=== PATIENT | male | born 1980 | race Caucasian/White ===

== ENCOUNTER 2018-04-12 00:35 | Day surgery (SDC) | payer OTHER ==
[~2018-04-12 00:35] MED LIST: AMOX500 PO; IBUP800 PO; OXYC15ER PO; PENVK500 PO
[2018-04-12] MEDS ORDERED: ASPI81CH PO (08:46)
[2018-04-12] MEDS ORDERED: LEVE500 PO (08:47)
[2018-04-12] MEDS ORDERED: ATOR20 PO (08:47)
[2018-04-12] MEDS ORDERED: METO25 PO (08:48)
[2018-04-12] MEDS ORDERED: OXYC5 PO (08:49)
[2018-04-12] MEDS ORDERED: Ceftriaxone2 G2 IV (08:49)
== END 2018-04-12 09:13 | disposition home or self-care (01) ==
LOC: ATC 00:35
DX: I33.0 Acute and subacute infective endocarditis (principal); B95.4 Other streptococcus as the cause of diseases classified elsewhere
CPT/HCPCS: 96365; J0696

== ENCOUNTER 2018-04-13 00:31 | Day surgery (SDC) | payer OTHER ==
[~2018-04-13 00:31] MED LIST changes: +ASPI81CH PO; +ATOR20 PO; +Ceftriaxone2 G2 IV; +LEVE500 PO; +METO25 PO; +OXYC5 PO
== END 2018-04-13 09:20 | disposition home or self-care (01) ==
LOC: ATC 00:31
DX: I35.8 Other nonrheumatic aortic valve disorders (principal); R78.81 Bacteremia; B95.4 Other streptococcus as the cause of diseases classified elsewhere
CPT/HCPCS: 96365; J0696

== ENCOUNTER 2018-04-14 02:00 | Day surgery (SDC) | payer OTHER | END 2018-04-14 09:21 | disposition home or self-care (01) | LOC: ATC 02:00 | DX: I33.0 Acute and subacute infective endocarditis (principal); B95.5 Unspecified streptococcus as the cause of diseases classified elsewhere; R78.81 Bacteremia | CPT/HCPCS: 96365; J0696 ==

== ENCOUNTER 2018-04-15 00:20 | Day surgery (SDC) | payer OTHER | END 2018-04-15 09:49 | disposition home or self-care (01) | LOC: ATC 00:20 | DX: I33.0 Acute and subacute infective endocarditis (principal); B95.4 Other streptococcus as the cause of diseases classified elsewhere; R78.81 Bacteremia | CPT/HCPCS: 96365; J0696 ==

== ENCOUNTER 2018-04-16 07:47 | Day surgery (SDC) | payer OTHER | END 2018-04-16 10:26 | disposition home or self-care (01) | LOC: ATC 07:47 | DX: I33.0 Acute and subacute infective endocarditis (principal); B95.5 Unspecified streptococcus as the cause of diseases classified elsewhere | CPT/HCPCS: 96365; J0696 ==

== ENCOUNTER 2018-04-17 02:00 | Day surgery (SDC) | payer OTHER | END 2018-04-17 09:18 | disposition home or self-care (01) | LOC: ATC 02:00 | DX: I38 Endocarditis, valve unspecified (principal) | CPT/HCPCS: 96365; J0696 ==

== ENCOUNTER 2018-04-18 00:10 | Day surgery (SDC) | payer OTHER | END 2018-04-18 09:25 | disposition home or self-care (01) | LOC: ATC 00:10 | DX: I33.0 Acute and subacute infective endocarditis (principal); B95.5 Unspecified streptococcus as the cause of diseases classified elsewhere | CPT/HCPCS: 96365; J0696 ==

== ENCOUNTER 2018-04-19 00:21 | Day surgery (SDC) | payer OTHER ==
[2018-04-19 10:28] LABS: BASOPHILS ABSOLUTE AUTO 0.05 K/mm3 (0.00-0.23); BASOPHILS PERCENT AUTO 1 % (0-2); EOSINOPHILS PERCENT AUTO 2 % (0-6); Hematocrit 32.6 % (37.0-53.0); Hemoglobin 10.4 g/dL (13.5-17.5); IMMATURE GRAN ABSOLUTE AUTO 0.03 K/mm3 (0.00-0.10); IMMATURE GRAN PERCENT AUTO 0 % (0-1); LYMPHOCYTES ABSOLUTE AUTO 2.81 K/mm3 (0.84-5.20); LYMPHOCYTES PERCENT AUTO 32 % (21-46); MONOCYTES ABSOLUTE AUTO 0.51 K/mm3 (0.16-1.47); MONOCYTES PERCENT AUTO 6 % (4-13); Mean Corpuscular HGB 29.7 pg (26.0-34.0); Mean Corpuscular HGB Conc 31.9 g/dL (31.5-36.5); Mean Corpuscular Volume 93 fL (80-100); NEUTROPHILS ABSOLUTE AUTO 5.26 K/mm3 (1.96-9.15); NEUTROPHILS PERCENT AUTO 59 % (41-73); Platelet Count 404 K/mm3 (150-400); RDW Coefficient Variation 14.6 % (11.7-14.2); RDW Standard Deviation 49.6 fL (35.1-46.3); White Blood Cell Count 8.86 K/mm3 (4.00-11.30)
[2018-04-19 10:49] LABS: Alanine Aminotransfer (ALT/SGP 29 U/L (12-78); Albumin, Blood 3.6 g/dL (3.4-5.0); Albumin/Globulin Ratio 0.8 (0.8-1.8); Alk Phos 82 U/L (50-136); Anion Gap 7 mmol/L (6-16); Aspartate Aminotrans (AST/SGOT 18 U/L (12-37); Bilirubin, Total 0.4 mg/dL (0.1-1.0); Blood Urea Nitrogen 9 mg/dL (8-24); Bun/Creatinine Ratio 11.7 (12.0-20.0); CO2, Blood 27 mmol/L (21-32); Calcium, Blood 8.8 mg/dL (8.5-10.1); Chloride, Blood 106 mmol/L (98-108); Creatinine, Blood 0.77 mg/dL (0.60-1.20); Globulin, Blood 4.4 g/dL (2.2-4.0); Glomerular Filtration Rate >60 (60-); Glucose, Blood 129 mg/dL (70-99); Potassium, Blood 4.2 mmol/L (3.5-5.5); Sodium, Blood 140 mmol/L (136-145)
== END 2018-04-19 10:26 | disposition home or self-care (01) ==
LOC: ATC 00:21
PROVIDERS: Internal Medicine
DX: S06.340A Traumatic hemorrhage of right cerebrum without loss of consciousness, initial encounter (principal); I35.8 Other nonrheumatic aortic valve disorders; Z95.2 Presence of prosthetic heart valve
CPT/HCPCS: 80053; 85025; 86140; 96365; J0696

== ENCOUNTER 2018-04-21 08:40 | Day surgery (SDC) | payer OTHER | END 2018-04-21 09:15 | disposition home or self-care (01) | LOC: ATC 08:40 | DX: I33.0 Acute and subacute infective endocarditis (principal); B95.4 Other streptococcus as the cause of diseases classified elsewhere | CPT/HCPCS: 96365; J0696 ==

== ENCOUNTER 2018-12-03 14:23 | Inpatient (IN) | payer OTHER ==
[~2018-12-03] VITALS: Ht 175.3 cm; Wt 73.1 kg
[2018-12-03 15:06] LABS: Source, Urine Catheter
[2018-12-03 15:06] LABS: BASOPHILS ABSOLUTE AUTO 0.03 K/mm3 (0.00-0.23); BASOPHILS PERCENT AUTO 0 % (0-2); Hemoglobin 13.7 g/dL (13.5-17.5); LYMPHOCYTES ABSOLUTE AUTO 0.53 K/mm3 (0.84-5.20); LYMPHOCYTES PERCENT AUTO 3 % (21-46); MONOCYTES ABSOLUTE AUTO 0.47 K/mm3 (0.16-1.47); MONOCYTES PERCENT AUTO 3 % (4-13); Mean Corpuscular HGB Conc 33.4 g/dL (31.5-36.5); Mean Corpuscular Volume 90 fL (80-100); Platelet Count 70 K/mm3 (150-400); RDW Coefficient Variation 12.6 % (11.7-14.2); RDW Standard Deviation 41.5 fL (35.1-46.3); Red Blood Cell Count 4.56 M/mm3 (4.30-5.90); White Blood Cell Count 15.91 K/mm3 (4.00-11.30)
[2018-12-03 15:12] LABS: PCO2 Arterial 28.8 mmHg (35-45); PO2 Arterial 85.5 mmHg (80-100); pH Blood Arterial 7.54 (7.35-7.45)
[2018-12-03 15:15] LABS: EOSINOPHILS PERCENT AUTO 0 % (0-6); IMMATURE GRAN ABSOLUTE AUTO 0.19 K/mm3 (0.00-0.10); IMMATURE GRAN PERCENT AUTO 1 % (0-1); NEUTROPHILS ABSOLUTE AUTO 14.69 K/mm3 (1.96-9.15); NEUTROPHILS PERCENT AUTO 92 % (41-73)
[2018-12-03 15:21] LABS: Alanine Aminotransfer (ALT/SGP 82 U/L (12-78); Albumin, Blood 3.3 g/dL (3.4-5.0); Albumin/Globulin Ratio 0.8 (0.8-1.8); Alk Phos 66 U/L (50-136); Anion Gap 9 mmol/L (6-16); Aspartate Aminotrans (AST/SGOT 49 U/L (12-37); Bilirubin, Total 1.4 mg/dL (0.1-1.0); Blood Urea Nitrogen 17 mg/dL (8-24); Bun/Creatinine Ratio 20.6 (12.0-20.0); CO2, Blood 27 mmol/L (21-32); Calcium, Blood 8.7 mg/dL (8.5-10.1); Chloride, Blood 96 mmol/L (98-108); Creatinine, Blood 0.83 mg/dL (0.60-1.20); Ethanol (Alcohol), Blood, Med <3 mg/dL; Glomerular Filtration Rate >60 (60-); Glucose, Blood 136 mg/dL (70-99); Potassium, Blood 3.6 mmol/L (3.5-5.5); Salicylate <1.7 mg/dL (2.8-20.0); Sodium, Blood 132 mmol/L (136-145); Total Protein, Blood 7.3 g/dL (6.4-8.2)
[2018-12-03 15:44] LABS: Appearance, Urine Clear (Clear); Blood, Urine 5+ (Neg); Color, Urine Amber (P-Yellow); Glucose Qualitative, Urine Neg (Neg); Ketones, Urine 1+ (Neg); Leukocyte Esterase, Urine 1+ (Neg); Nitrite, Urine Neg (Neg); Protein, Urine 4+ (Neg); Urobilinogen, Urine 3+ (Normal)
[2018-12-03 16:05] LABS: U Amphetamine Screen DETECTED; U Barbituate Screen Not Detected; U Benzodiazapine Screen Not Detected; U Buprenorphine Screen Not Detected; U Cannabinoids Screen Not Detected; U Cocaine Screen Not Detected; U Methadone Screen Not Detected; U Methamphetamine Screen DETECTED; U Opiates Screen DETECTED; U Oxycodone Screen Not Detected; U Phencyclidine Screen Not Detected; U Propoxyphene Screen Not Detected
[2018-12-03 16:20] LABS: Bilirubin, Urine 1+ (Neg)
[2018-12-03 16:22] LABS: Squamous Epithelial Cells Rare /hpf (Few)
[2018-12-03 16:23] LABS: Bacteria Rare /hpf
--- NOTE | 2018-12-03 19:57 | NUR ---
PT CAME FROM ER, VIEW SCORE OF A 10. RAPID CALLED. REPORT GIVEN TO MARTHA IN PCU. PT TRANSFERRED.
--- NOTE | 2018-12-03 20:37 | NUR ---
Asked by nursing to see pt for supportive care. pt non verbal grimacing, flushed aggitated pulling hand up to forehead. Nursing reviewed symptoms of frontal stroke with family. Review briefly plan of care. Daughter is eldest child and next of kin. Pt sister is at bedside, she is not sure if he did POA when at SNF. They are shared decision maker for him. Brief supportive conversation with them.
--- NOTE | 2018-12-04 04:39 | NUR ---
SHIFT SUMMARY: PATIENT ARRIVED TO [facility] 12/03/18 AT 2000 APPROX VIA BED FROM 3D FLOOR POST POST ACUTE CARE REGISTERED NURSE. PATIENT NONVERBAL AT THIS TIME, SISTER AND DAUGHTER AT BEDSIDE. ADMISSION COMPLETED WITH DAUGHTERS ASSISTANCE, SOME HX UNCERTAIN PER DAUGHTER RECOLLECTION. NEURO COMPLETED Q2 HOURS AND REMAINS THE SAME: PATIENT NONVERBAL, NOT FOLLOWING COMMANDS, UNABLE TO ASSESS FACIAL DROOP, TONGUE DEVIATION OR QUADRANTS OF VISION. PATIENT ABLE TO TRACK INTERMITTENTLY, OPENS EYES SPONTANEOUSLY BUT DOES NOT REMAIN ALERT OR AWAKE FOR LONGER THAN 10 TO 20 SECOUNDS AT A TIME. PATIENT DEMONSTRATES NYSTAGMUS BILATERALLY WHEN EYES ARE OPEN. UNABLE TO ASSESS SENSATION AND INTERMITTENTLY RESPONDS TO TOUCH ON ALL EXTREMITIES. PATIENT MOVING RUE, RLE AND LLE CONTINUOUSLY BUT VERY LITTLE LUE MOVEMENT NOTICED. RESTRAINTS PLACED PER MD ORDER D/T PATIENT CONTINUOUSLY SITTING UP AND TRYING TO GET OOB, PULLING ON LINES AND EQUIPMENT. APPROX 0230 PATIENT MOVEMENTS VERY AGGITATED, HAS RECIEVED 3L FLUID WITH NO URINE OUTPUT. BLADDER SCAN REVEALED 659ML RETAINED URINE, URINE DRAINED PER PROTOCOL AND MD NOTIFIED FOR ORDER. PATIENT FAILED SWALLOW SCREEN DUE TO INABILITY TO MAINTAIN WAKEFULNESS FOR MORE THAN 20 SECOUNDS AND INABILITY TO FOLLOW COMMANDS. SEIZURE PADS ON BED, SUCTION SET UP, O2 NC READY, HOB AT 35 DEGREES TO PREVENT SILENT ASPIRATION, PATIENT NPO AT THIS TIME PER NURSING JUDGEMENT. BED LOW AND LOCKED WITH EXIT ALARM ON, CALL LIGHT WITHIN REACH, MONITORING CLOSELY WITH INCREASED NURSING ROUNDS AND PATIENT ROOM ACROSS FROM NURSES STATION.
--- NOTE | 2018-12-04 07:45 | NUR ---
AM ASSESSMENT: Pt has non-stop movement of his BLE. Will open eyes breifly to verbal stimulus but then closes them again. Does not respond verbally or follow commands. L arm very stiff. R arm Pt does have some movement that he does himself. Wrist restraints removed. Pt is not attempting to get up or pull at lines at this time. BP stable. HR ST at 106. Temp elevated. Will medicate per orders with Tylenal Supp, Pt NPO status. Neuro assessment very difficult to complete since Pt non-verbal and does not follow commands. Bed alarm on. Call light in reach. Seizure pads on bed. Wrist restraints removed. Will treat per orders and monitor for changes.
--- NOTE | 2018-12-04 11:42 | NUR ---
Echocardiogram completed.
--- NOTE | 2018-12-04 15:45 | NUR ---
Update: Pt has had minimal changes in VS and Neuro assessment. Still non-verbal, does not follow commands and does not keep eyes open for greater then 10-20 sec. Pt does seem more uncomfortable or aggited, by the way he is moving his BLE and lifting his R arm and placing on forehead. Notified physician and order obtained for fentanyl for S/S of withdrawl or pain. Will medicate per orders. Bed alarm on. Call light in reach.
--- NOTE | 2018-12-04 17:18 | NUR ---
Shift Summary: Pt still lying in bed. No neurological changes this shift. Still non-verbal and does not follow commands. Pt did seem to become slightly more aggitated throughout the shift, as displayed by moving his feet more quickly and picking up his R arm to rest on his forehead. Pt was medicated with 12.5mg fentanyl and this seemed to improved his aggitation and he was not as active with his feet. Pt had his daughter come to visit this shift and many phone calls from family asking how he is doing. Gave multiple updates on his gaking's [facility] at this time. IVF ran throughout the shift per orders. ST came and attempted to work with Pt. He is to remain NPO. Justin cath has been draining saúl urine. BT positive. PT has been running a temp throughout the shift and has recieved Tylenal Supp and Ice packs PRN. Will report off to night RN. No acute changes at this time.
--- NOTE | 2018-12-04 19:06 | NUR ---
UPDATE: With last reposition Pt opened his eyes more and attempted to respond verbally to RN. Still did not follow directions but appeared to be trying to smile and seemed to be trying to talk. Appeared to have a slight R side facial droop. L side of face was much more expressive. This only lasted about 30sec-1min. Report given to night RN.
[2018-12-04 20:19] LABS: Vancomycin, Trough 10.2 ug/mL (5.0-10.0)
--- NOTE | 2018-12-04 21:05 | NUR ---
Multiple visits today. Family ome to rest. Review of symptoms with nursing, pharmacy consult for possible medication suggestions for complex pain and symptoms related to withdrawl and aggitation and pain with nerological involvement. Will review prognsosis with hospitalist and cardiology and assist with a plan with family.
[2018-12-05 04:09] LABS: Hematocrit 36.6 % (37.0-53.0); Hemoglobin 12.8 g/dL (13.5-17.5); Mean Corpuscular HGB 30.2 pg (26.0-34.0); Mean Platelet Volume 12.1 fL (9.1-12.4); RDW Coefficient Variation 12.5 % (11.7-14.2); RDW Standard Deviation 39.3 fL (35.1-46.3); Red Blood Cell Count 4.24 M/mm3 (4.30-5.90); White Blood Cell Count 13.64 K/mm3 (4.00-11.30)
[2018-12-05 04:19] LABS: Mean Corpuscular Volume 86 fL (80-100)
[2018-12-05 04:21] LABS: Platelet Count 27 K/mm3 (150-400)
[2018-12-05 04:31] LABS: Anion Gap 8 mmol/L (6-16); Blood Urea Nitrogen 19 mg/dL (8-24); Bun/Creatinine Ratio 30.6 (12.0-20.0); CO2, Blood 24 mmol/L (21-32); Calcium, Blood 7.9 mg/dL (8.5-10.1); Chloride, Blood 104 mmol/L (98-108); Creatinine, Blood 0.62 mg/dL (0.60-1.20); Glomerular Filtration Rate >60 (60-); Glucose, Blood 125 mg/dL (70-99); Potassium, Blood 3.2 mmol/L (3.5-5.5); Sodium, Blood 136 mmol/L (136-145)
--- NOTE | 2018-12-05 04:57 | NUR ---
SHIFT SUMMARY: PATIENT REMAINED MOSTLY AFEBRILE THIS SHIFT, SKIN C/D/I, TURNING Q2 HOURS AND LINEN CHANGE, DIAPHORETIC INTERMITTENTLY. PLATELET CRITICAL LOW CALLED IN TO MD HERNANDES. PATIENT VSS, CALL LIGHT WITHIN REACH, Q4 NEURO CHECKS COMPLETED, CALL LIGHT WIHTIN REACH.
--- NOTE | 2018-12-05 07:45 | NUR ---
INITIAL ASSESSMENT: PATIENT IS RESTING WITH EYES CLOSED, AWAKENS AT THE SOUND OF HIS NAME. PT OPENS EYES, IS NOT ABLE TO TRACK OR FOLLOW COMMANDS. PHILLIP. PT IS NOT ABLE TO ANSWER QUESTIONS, OCCASIONALLY SAYS "YEAH." NOT ABLE TO FOLLOW COMMANDS TO ASSESS PUBLIC ADDRESS SYSTEM MECHANIC OR PEDAL PLANTAR FLEXION. RIGHT FACIAL DROOP NOTED, WHEN PT GRIMACES. PT DOES NOT APPEAR TO BE IN PAIN AT THIS TIME, FACE SCALE 2/10. HRR, NSR IN THE 90S PER TELEMETRY. BIOX WNL ON RA. BT+. PPP. EDEMA NOTED TO THE RIGHT ARM, RECENT IV INFILTRATION. PT IS NOT ABLE TO MOVE RIGHT ARM IND. LEGS HAVE GROSS MOTOR MOVEMENT OF BLE. VSS. IV MEDICATIONS HUNG AT THIS TIME. PT SEEMS TO BE RESTING COMFORTABLY WITH NO STIMULI. BED ALARM ON FOR SAFETY. WILL CONTINUE TO MONITOR.
--- NOTE | 2018-12-05 08:30 | NUR ---
DR. HICKS HERE TO SEE PATIENT, NOTIFIED OF PLATELETS, LOVENOX DC'D. PT STILL RESTING COMFORTABLY. WILL CONTINUE TO MONITOR.
--- NOTE | 2018-12-05 09:00 | NUR ---
REPORT GIVEN TO ANKUSH GARRETT.
--- NOTE | 2018-12-05 16:55 | NUR ---
Called to room by bedside nurse, Gina. She states that family in the room at this time. Daughter present, son in law present. Pt has a mother that is living. Reviewed decision making. Spoke to daughter and son in law. Discussed concerns. They are waiting on CHILO testing. Provided business card and book, [employer]. They do have questions about signing papers and physical integration practitioner. I do not know any of that information. Pt is flushed with fever. 30 breaths per min, appears anxious and his feet are continuously moving. Does not appear comfortable. Spoke with Gina again. Reported symptoms. Discussed with charge nurse, Diya. Gina may call dr Martino to report changes. Did discuss briefly, the possiblity of brain stem involvement. This was also the concern of Gayatri speech therapiest this morning. Will remain available. High risk for pt passing away in the hospital. It does not seem likely he will survive, given the severity of his presentation and specific problems. [facility] will not be taking this patient. He had valve replacement in April of last year. He did not stop using drugs.
--- NOTE | 2018-12-05 19:20 | NUR ---
PATIENT FEBRILLE ON AND OFF THROUGH OUT THE SHIFT. RECTAL TEMP PROBE PLACED AND PATIENT PLACED ON A COOLING BLANKET TO CORRECT FEVER. NO OTHER ACUTE ISSUES NOTED THROUGH OUT THE SHIFT. NG TUBE PLACEMENT ON HOLD UNTIL CHILO IS COMPLETE. NO OTHER ISSUES NOTED AT THIS TIME. JACOBO IS PATENT DRAINING TEA COLOR URINE. WILLCONTINUE TO MONITOR FOR CHANGES.
[2018-12-06 04:07] LABS: Hematocrit 38.1 % (37.0-53.0); Hemoglobin 13.2 g/dL (13.5-17.5); Mean Corpuscular HGB 29.6 pg (26.0-34.0); Mean Corpuscular HGB Conc 34.6 g/dL (31.5-36.5); Mean Corpuscular Volume 85 fL (80-100); Mean Platelet Volume 12.9 fL (9.1-12.4); RDW Coefficient Variation 12.7 % (11.7-14.2); RDW Standard Deviation 39.6 fL (35.1-46.3); Red Blood Cell Count 4.46 M/mm3 (4.30-5.90); White Blood Cell Count 16.26 K/mm3 (4.00-11.30)
[2018-12-06 04:22] LABS: Platelet Count 34 K/mm3 (150-400)
[2018-12-06 04:25] LABS: Anion Gap 9 mmol/L (6-16); Blood Urea Nitrogen 22 mg/dL (8-24); Bun/Creatinine Ratio 42.4 (12.0-20.0); CO2, Blood 20 mmol/L (21-32); Calcium, Blood 7.5 mg/dL (8.5-10.1); Chloride, Blood 110 mmol/L (98-108); Creatinine, Blood 0.52 mg/dL (0.60-1.20); Glomerular Filtration Rate >60 (60-); Glucose, Blood 118 mg/dL (70-99); Magnesium, Blood 2.2 mg/dL (1.6-2.4); Phosphorus, Blood 1.9 mg/dL (2.5-4.9); Potassium, Blood 3.2 mmol/L (3.5-5.5); Sodium, Blood 139 mmol/L (136-145)
--- NOTE | 2018-12-06 04:29 | NUR ---
PCU NOC SHIFT SUMMARY PATIENT REMAINS CONFUSED T/O SHIFT - PATIENT DID HAVE SOME MEANINGFUL CONVERSATION DURING SHIFT WERE HE STATED HIS BIRTHDATE AND NAME, BUT THEN BECOME CONFUSED TO NAME AND BIRTHDATE WHEN ASKED. PATIENT REMAINS FOR THE MAJORITY OF SHIFT NONVERBAL WITH NO MEANINGFUL COMMUNICATION. PATIENT CONTINUES TO HAVE RECTAL TEMPERATURE FROM 99.9 - 101.0; PATIENT HAS COOLING BLANKET UNDER HIM T/O SHIFT. FLUIDS RUNNING PER EMAR. RESP E/U, TACHYPENIC T/O SHIFT ON ROOM AIR. VSS. PATIENT MOVES LOWER EXTREMETIES WELL BUT DOES NOT MOVE ARMS. NO ACUTE CHANGES T/O SHIFT. JACOBO CATH IN PLACE DRAINING ANKUSH - ORANGE URINE. WILL CONTINUE TO MONITOR AND GIVE REPORT TO DAYSHIFT RN. BED ALARM ON.
[2018-12-06 07:12] LABS: HIV SCREEN 4TH GENERATION WRFX Non Reactive (Non Reactive)
--- NOTE | 2018-12-06 08:18 | NUR ---
pt laying in bed, head is turned to the right, asked him if he can turn his head to the left, he looked like he was making an attempt, he has his eyes open today, and is tracking, answers no to pain, states he is comfortable at this time, follows some commands, director of social work on right is somewhat strong, none on left, but slightly moved fingers on left, christiano, did smile, asked him to move his feet, dpfe, he crossed his legs, slight movement in his feet, but seems to not connect what this mortgage loan underwriter is asking, was able to state his name and birthdate, when asked who [place] is he replied his daughter, but states he is at home. lungs are clear dim in bases, resp even and unlabored, at rate of 22bpm, no cough noted, is currently on r/a, hrr, tele in place running sb, can auscultate clicking from valve, no edema noted, ppp+2, cap refill <3sec, vs stable, temp 99.0 with rectal probe, is on a cooling blanket, solomon cath draining saúl urine, skin c/w/d, call light in reach. Dr. Christianson in to see pt, was called into do a CHILO to check valve, but plts are 34. Dr. Martino also in to see him and states he has improved.
--- NOTE | 2018-12-06 13:30 | NUR ---
ot and pt worked with pt. he was able to stand at the bedside for five minutes, was fatigued after workout. lots of family in room. call light in reach.
[2018-12-06 15:08] LABS: Gentamicin, Trough <0.2 ug/mL (0.0-1.9)
--- NOTE | 2018-12-06 17:29 | NUR ---
PT HAS HAD A PRETTY GOOD DAY IS MUCH MORE ALERT THAN YESTERDAY, GAVE HIM SOME TYLENOL FOR A TEMP HE RESPONDED WELL, HAS HAD A LOT OF PEOPLE IN THE ROOM TODAY AND SEEMS PRETTY FATIGUED AT THIS TIME. NO FURTHER CHANGES THIS SHIFT. CALL LIGHT IN REACH.
[2018-12-07 04:34] LABS: Magnesium, Blood 2.1 mg/dL (1.6-2.4); Phosphorus, Blood 2.3 mg/dL (2.5-4.9)
--- NOTE | 2018-12-07 09:06 | NUR ---
SHIFT SUMMARY PT ALERT, ORIENTED TO SELF, ABLE TO FOLLOW DIRECTION AND ANSWER SIMPLE RESPONSE OR Y/N QUESTIONS. FOELY DRAINING WELL; CATH CARE PER PROTOCOL. IV GTT TX PER EMAR. COARSE LS BILAT; RA; PT DENIES SOB. PT MAKES SMALL ADJUSTMENT IN POSITION. SCD'S TO BLE'S. HOB ELEVATED; ASPIRATION PRECAUTIONS WITH FLUIDS. SERVERAL VISITORS DURING EVENING. PAIN IN RUE MANAGED PER EMAR. REPORT GIVEN TO DAY SHIFT RN.
--- NOTE | 2018-12-07 09:24 | NUR ---
REPORTED TEMP AND INCREASED RR TO DR. HICKS. REQUESTED CHANGE IN ORDERED POTASSIUM DUE TO PATIENT ONLY TOLERATING CRUSHED MEDS AT THIS TIME. DR. HICKS AWARE.
--- NOTE | 2018-12-07 18:34 | NUR ---
SHIFT SUMMARY PATIENT HAS SHOWN SOME IMPORVEMENT TO ALERTNESS THROUGHOUT THE DAY. HE IS STILL DISORIENTED, HE IS CAPBALE OF STATING HIS BIRTHDAY AND BUT DOES NOT KNOW WHERE HE IS OR THE DATE. HE DID REFUSE HIS DINNER D/T NOT LIKEING IT AND EXPRESSED PAIN WHEN I DC'D HIS IV. HIS AUNT IS IN THE ROOM NOW AND IS PLEASED WITH THE STATE HE IS IN. SCD BOOTS HAVE BEEN PLACED ON PATIENT. HIS LEFT HAND REMAINS MARKEDLY WEAKER THAN HIS RIGHT. HE IS ABLE TO STAND WITH A WALKER. HE STICKS HIS TONGUE OUR ON COMMAND AND SHOWS NO FACIAL DROOP WITH SHOWING TEETH OR SQUEEZING EYES SHUT.
--- NOTE | 2018-12-07 19:15 | NUR ---
OPENING NOTE RECEIVED REPORT FROM KEATON GARRETT AND ASSUMED PT CARE. PT IS SITTING UP IN RECLINER CHAIR, ALERT AND ANSWERING YES/NO QUESTIONS. AUNT AND NEPHEW VISITING AT THE BEDSIDE. PT DENIES COMPLAINTS. CHAIR ALARM IN PLACE FOR PT SAFETY. WILL MONITOR CLOSELY AND CONTINUE PLAN OF CARE.
--- NOTE | 2018-12-07 20:00 | NUR ---
FEBRILE PT IS FOUND TO BE FEBRILE AT 101.7. PT APPEARS FLUSHED AND ANSWERS "YES" WHEN ASKED IF HE FEELS WARM. ROOM TEMPERATURE ADJUSTED DOWN, COOL CLOTH PROVIDED AND TYLENOL ADMINISTERED. WILL MONITOR FOR EFFECT.
--- NOTE | 2018-12-08 06:15 | NUR ---
SHIFT SUMMARY: PATIENT ABLE TO ANSWER QUESTIONS, VSS, BED ALARM ON D/T IMPULSIVE BEHAVIOR. PATIENT HAS HAD X2 DIARRHEA, ADULT BREIF ON D/T INCOMTINENCE. NO OTHER ISSUES NOTED. CALL LIGHT WITHIN REACH, BED LOW AND LOCKED.
[2018-12-08 07:12] LABS: Hematocrit 34.1 % (37.0-53.0); Hemoglobin 11.4 g/dL (13.5-17.5); Mean Corpuscular HGB 29.2 pg (26.0-34.0); Mean Corpuscular HGB Conc 33.4 g/dL (31.5-36.5); Mean Corpuscular Volume 87 fL (80-100); Mean Platelet Volume 10.4 fL (9.1-12.4); Platelet Count 136 K/mm3 (150-400); RDW Coefficient Variation 13.6 % (11.7-14.2); RDW Standard Deviation 43.6 fL (35.1-46.3); Red Blood Cell Count 3.91 M/mm3 (4.30-5.90); White Blood Cell Count 24.16 K/mm3 (4.00-11.30)
[2018-12-08 07:28] LABS: Gentamicin, Trough 0.4 ug/mL (0.0-1.9)
[2018-12-08 07:34] LABS: Anion Gap 9 mmol/L (6-16); Blood Urea Nitrogen 14 mg/dL (8-24); Bun/Creatinine Ratio 20.1 (12.0-20.0); CO2, Blood 24 mmol/L (21-32); Calcium, Blood 7.1 mg/dL (8.5-10.1); Chloride, Blood 102 mmol/L (98-108); Glomerular Filtration Rate >60 (60-); Glucose, Blood 132 mg/dL (70-99); Magnesium, Blood 1.9 mg/dL (1.6-2.4); Phosphorus, Blood 2.6 mg/dL (2.5-4.9); Sodium, Blood 135 mmol/L (136-145)
--- NOTE | 2018-12-08 18:15 | NUR ---
SHIFT SUMMARY PT ALERT AND ORIENTED AT THIS TIME. PT ANSWERING QUESTIONS APPROPRIATELY, BUT SHORT SENTENCES. VS STABLE. PT HAS HAD FEVER ON AND OFF AND MEDICATED PER EMAR. PT ABLE TO TOLERATE FOOD INTAKE TODAY. REPORT CALLED TO MEDICAL FLOOR RN. PT TAKEN UP BY BED.
--- NOTE | 2018-12-08 18:40 | NUR ---
1835 PT TRANSFERRED TO MEDICAL FLOOR RM [id number] FROM PCU. AUNT AT BEDSIDE. REPORT RECIEVED PRIOR TO TRANSFER.
--- NOTE | 2018-12-08 22:20 | NUR ---
2000 PT AUNT AT SIDE AND SUPPORTIVE. 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 PT ANSWERS WITH YES AND NO RESPONSES ONLY.
--- NOTE | 2018-12-09 04:27 | NUR ---
SHIFT SUMMARY: 37 Y/O MALE RESTED COMFORTABLY ALL EVENING AND WAS ABLE TO FOLLOW SIMPLE VERBAL COMMANDS. PTS HAS TROUBLE ORGANIZING THOUGHTS AND ABLE TO GIVE GRUNTING NOISE ONLY WITH NEEDS OR DISLIKES. PTS LEFT SIDE WEAKER THAN RIGHT. PT REQUIRES ASSISTANCE WITH FEEDING SELF AND CUTTING UP ANY JELLO OR YOGURT EATEN THIS SHIFT. PT HAS GOOD GAG REFLEX, LUNG SOUNDS CLEAR THROUGHOUT. PT DENIES PAIN OR NAUSEA. PTS JACOBO DRAINING CLEAR YELLOW FLUID LARGE AMOUNTS. PTS BED ALARM APPLIED, BED LOW POSITION, CALL LIGHT AT SIDE.
[2018-12-09 05:54] LABS: Anion Gap 9 mmol/L (6-16); Blood Urea Nitrogen 10 mg/dL (8-24); Bun/Creatinine Ratio 14.9 (12.0-20.0); CO2, Blood 23 mmol/L (21-32); Calcium, Blood 7.4 mg/dL (8.5-10.1); Chloride, Blood 102 mmol/L (98-108); Creatinine, Blood 0.67 mg/dL (0.60-1.20); Glomerular Filtration Rate >60 (60-); Glucose, Blood 139 mg/dL (70-99); Potassium, Blood 3.1 mmol/L (3.5-5.5); Sodium, Blood 134 mmol/L (136-145)
--- NOTE | 2018-12-09 18:03 | NUR ---
SHIFT SUMMARY: PT IS HAS BEEN A&O, CALM AND COOPERATIVE DURING THIS SHIFT. PT HAS ALTERNATED BETWEEN BEDSIDE CHAIR AND LYING IN BED DURING THIS SHIFT. PT EXPERIENCED A FEVER OF 103 AND WAS MEDICATED WITH TYLENOL PER EMAR. PT DENIES PAIN. PT SLOW TO RESPOND TO QUESTIONS. PT CURRENTLY SITTING UP IN BED WATCHING TV. WILL CONTINUE TO MONITOR.
--- NOTE | 2018-12-09 19:28 | NUR ---
SN ASSESSMENT I AGREE WITH THE SN [facility] MORTON ASSESSMENT AND CARE OF THE PT TODAY
[2018-12-10 05:59] LABS: Anion Gap 7 mmol/L (6-16); Blood Urea Nitrogen 11 mg/dL (8-24); Bun/Creatinine Ratio 14.8 (12.0-20.0); CO2, Blood 24 mmol/L (21-32); Calcium, Blood 7.3 mg/dL (8.5-10.1); Chloride, Blood 101 mmol/L (98-108); Creatinine, Blood 0.74 mg/dL (0.60-1.20); Glomerular Filtration Rate >60 (60-); Glucose, Blood 109 mg/dL (70-99); Potassium, Blood 3.9 mmol/L (3.5-5.5); Sodium, Blood 132 mmol/L (136-145)
--- NOTE | 2018-12-10 06:29 | NUR ---
SUMMARY: PT ORIENTED TO SELF AND FAMILY AND IS ABLE TO ANSWER YES/NO Q'S APPROPRIATELY AND SPEAKS IN SOME SUCCINCT PHRASES. HE SEEMS CONFUSED AT TIMES THOUGH W/IMPULSIVITY OOB AND INABILITY TO SPECIFY REASONING. HE SAT IN CHAIR AT TIMES BUT HAS UNSTEADY GAIT AND REQUIRES ALARMS AT ALL TIMES. BLE WEAKNESS AND L.ARM WEAKNESS/LACK OF COORDINATION NOTED POST CVA. HE HAS DELAYED RESPONSES W/BLANK GAZE AT TIMES TO STAFF Q'S. JACOBO IS PATENT/DRAINING. PT DENIES PAIN/COMPLAINTS BUT SAID "WANT TO GET OUT OF HERE" IN REGARDS TO HOSPITALISATION. FAMILY VISITED THIS SHIFT. PT HAD TEMP WHICH WAS RESOLVING FROM DAY SHIFT OF 100.7 AT START OF SHIFT WHICH CONTINUED TO IMPROVE T/O NOCTE. ALL OTHER VSS. NO ACUTE CHANGES. IV ABX RECIEVED MOST OF NOCTE FOR ENDOCARDITIS. WILL MONITOR AND REPORT TO DAY RN.
--- NOTE | 2018-12-10 12:54 | NUR ---
Pt visit this afternoon. Pt sitting up in chair upon arrival. He shakes his head back and forth, and side to side when responding to yes and no questions. Asked Pt if he was having any pain and he turns his head from side to side indicating no. Asked if he was comfortable and he respnds with shaking his head up and down indicating yes. Pt closes his eyes within minutes of visit. This RN ended visit to allow Pt to rest. Spoke with Pt's bedside nurse Nilton and he reports no concerns at this time. Palliative Care will remain available.
--- NOTE | 2018-12-10 17:49 | NUR ---
END OF SHIFT NOTE: PT HAS BEEN AWAKE, ALERT AND ORIENTED DURING THIS SHIFT. PT SEEMS ANXIOUS. PT RESPONDS TO YES OR NO QUESTIONS AND HAS MINIMAL VERBAL RESPONSE TO MOST OTHER QUESTIONS, USUALLY LIMITING TO 1-2 WORD RESPONSES. PT SLIGHTLY UNSTEADY ON FEET. PT WALKED IN HALLWAY WITH P/T THIS AFTERNOON. PT SEEMS SLIGHTLY MORE ALERT THIS SHIFT THAN 12/09. PT COMPLIANT WITH MEDICATIONS.
--- NOTE | 2018-12-10 23:46 | NUR ---
JACOBO WAS DC'D ON DAY SHIFT BUT THERE IS NO DOCUMENTATION OF HAVING DONE SO AND ORDER WAS STILL ACTIVE. TAMI LIU STATED IN SHIFT REPORT THAT ORDERS WERE RECIEVED TO REMOVE JACOBO AND THAT PT HAD BEEN VOIDING SINCE. ORDER WAS DC'D AT THIS TIME.
--- NOTE | 2018-12-11 06:29 | NUR ---
SUMMARY: PT HAS DELAYED RESPONSES AND ANSWERS Q'S SUCCINTLY BUT SEEMS TO BE A/O THIS SHIFT. HE'S BEEN RESTLESS WA AND APPEARS ANXIOUS STATING "I'M BORED" AND "DON'T KNOW WHAT TO DO". HE'S BEEN INCONTINENT OF URINE/BM THIS SHIFT BUT HAS ALSO USED TOILET APPROPRIATELY. HE DOESN'T CALL FOR ASSIST AND SETS BED ALARM OFF AT TIMES. STRENGTH AND GAIT IMPROVING BUT OCCASIONALLY SEEMS UNSTEADY AND SHOWERED THIS SHIFT W/O DIFFICULTY. HE HAD A COUPLE LOOSE BM'S AND STAFF PLAN TO OBTAIN STOOL SPECIMEN TO R/O POSSIBLE C.DIFF. HE IS ON A VARIETY OF IV ABX SO CDIFF INFECTION IS PLAUSIBLE. FAMILY VISITED AT START OF SHIFT. NO ACUTE CHANGES, VSS/AFEBRILE. WILL MONITOR AND REPORT TO DAY RN.
[2018-12-11 07:38] LABS: BASOPHILS ABSOLUTE AUTO 0.06 K/mm3 (0.00-0.23); BASOPHILS PERCENT AUTO 0 % (0-2); EOSINOPHILS ABSOLUTE AUTO 0.11 K/mm3 (0.00-0.68); EOSINOPHILS PERCENT AUTO 0 % (0-6); Hematocrit 32.7 % (37.0-53.0); IMMATURE GRAN ABSOLUTE AUTO 0.33 K/mm3 (0.00-0.10); IMMATURE GRAN PERCENT AUTO 1 % (0-1); LYMPHOCYTES ABSOLUTE AUTO 2.71 K/mm3 (0.84-5.20); LYMPHOCYTES PERCENT AUTO 11 % (21-46); MONOCYTES ABSOLUTE AUTO 1.96 K/mm3 (0.16-1.47); MONOCYTES PERCENT AUTO 8 % (4-13); Mean Corpuscular HGB 29.1 pg (26.0-34.0); Mean Corpuscular HGB Conc 33.6 g/dL (31.5-36.5); Mean Corpuscular Volume 87 fL (80-100); Mean Platelet Volume 9.4 fL (9.1-12.4); NEUTROPHILS ABSOLUTE AUTO 20.47 K/mm3 (1.96-9.15); NEUTROPHILS PERCENT AUTO 80 % (41-73); Platelet Count 382 K/mm3 (150-400); RDW Coefficient Variation 13.9 % (11.7-14.2); RDW Standard Deviation 43.9 fL (35.1-46.3); Red Blood Cell Count 3.78 M/mm3 (4.30-5.90); White Blood Cell Count 25.64 K/mm3 (4.00-11.30)
[2018-12-11 07:54] LABS: Albumin, Blood 2.1 g/dL (3.4-5.0); Anion Gap 7 mmol/L (6-16); Blood Urea Nitrogen 11 mg/dL (8-24); CO2, Blood 23 mmol/L (21-32); Calcium, Blood 7.5 mg/dL (8.5-10.1); Chloride, Blood 102 mmol/L (98-108); Creatinine, Blood 0.69 mg/dL (0.60-1.20); Glomerular Filtration Rate >60 (60-); Glucose, Blood 130 mg/dL (70-99); Phosphorus, Blood 3.7 mg/dL (2.5-4.9); Potassium, Blood 4.1 mmol/L (3.5-5.5); Sodium, Blood 132 mmol/L (136-145)
[2018-12-11 07:55] LABS: Gentamicin, Trough 1.5 ug/mL (0.0-1.9)
--- NOTE | 2018-12-11 18:19 | NUR ---
PT ALERT, ORIENTED TO SELF, PLACE AND FAMILY, PT IS UP WITH MINIMAL ASSIST TO THE BATHROOM WITH A CANE, PT APPEARS TO BE BREATHING EASILY ON RA, THE PT REMAINED AFEBRIL SO FAR TODAY, THE PTS FAMILY CHECKS IN ON THE PT DAILY, PT IS COMPLIANT WITH MEDICATION REGIME, BED ALARM ON , CALL LIGHT IN REACH
[2018-12-12 05:23] LABS: BASOPHILS ABSOLUTE AUTO 0.04 K/mm3 (0.00-0.23); BASOPHILS PERCENT AUTO 0 % (0-2); EOSINOPHILS ABSOLUTE AUTO 0.13 K/mm3 (0.00-0.68); EOSINOPHILS PERCENT AUTO 1 % (0-6); Hematocrit 31.5 % (37.0-53.0); Hemoglobin 10.7 g/dL (13.5-17.5); IMMATURE GRAN ABSOLUTE AUTO 0.24 K/mm3 (0.00-0.10); IMMATURE GRAN PERCENT AUTO 1 % (0-1); LYMPHOCYTES ABSOLUTE AUTO 2.23 K/mm3 (0.84-5.20); LYMPHOCYTES PERCENT AUTO 11 % (21-46); MONOCYTES ABSOLUTE AUTO 1.41 K/mm3 (0.16-1.47); MONOCYTES PERCENT AUTO 7 % (4-13); Mean Corpuscular HGB 29.3 pg (26.0-34.0); Mean Corpuscular Volume 86 fL (80-100); Mean Platelet Volume 9.3 fL (9.1-12.4); NEUTROPHILS ABSOLUTE AUTO 16.12 K/mm3 (1.96-9.15); NEUTROPHILS PERCENT AUTO 80 % (41-73); Platelet Count 383 K/mm3 (150-400); RDW Coefficient Variation 13.8 % (11.7-14.2); RDW Standard Deviation 43.2 fL (35.1-46.3); Red Blood Cell Count 3.65 M/mm3 (4.30-5.90); White Blood Cell Count 20.17 K/mm3 (4.00-11.30)
[2018-12-12 05:54] LABS: Albumin, Blood 2.2 g/dL (3.4-5.0); Anion Gap 8 mmol/L (6-16); Blood Urea Nitrogen 12 mg/dL (8-24); Bun/Creatinine Ratio 15.5 (12.0-20.0); CO2, Blood 22 mmol/L (21-32); Calcium, Blood 7.6 mg/dL (8.5-10.1); Chloride, Blood 100 mmol/L (98-108); Creatinine, Blood 0.78 mg/dL (0.60-1.20); Glomerular Filtration Rate >60 (60-); Glucose, Blood 158 mg/dL (70-99); Phosphorus, Blood 3.6 mg/dL (2.5-4.9); Potassium, Blood 4.1 mmol/L (3.5-5.5); Sodium, Blood 130 mmol/L (136-145)
--- NOTE | 2018-12-12 07:41 | NUR ---
pt with cva with lt sided ue and lt le weakness continues. up multiple times to bathroom with unsteady gait. PT set off bed alarm multiple times impulsive. no swallow deficit noted . speech slow but clear. Family was in and supportive. medicated x 1 for co lt le pain with tylenol and fent with mild helpful effect.
[2018-12-12 16:37] LABS: Gentamicin, Trough 1.3 ug/mL (0.0-1.9)
--- NOTE | 2018-12-12 18:40 | NUR ---
PATIENTS MENTATION VAIRES ON THE TIME OF DAY. DOES NOT KNOW THE DAY OR YEAR. KNOWS HE IS IN THE HOSPTIAL AND HIS FAMILY. HE APPEARS MORE STABLE ON HIS FEET BUT STILL IMPULSIVE WITH GETTING OUT OF BED. FAMILY PRESENT. COMPLAINS OF PAIN TO RIGHT CALF. THIS NURSE CHECKED AND NO REDNESS OR SWELLING NOTED. PATIENT MEDICATED PER EMAR.
--- NOTE | 2018-12-13 03:35 | NUR ---
PT continues alert and confused with 1 positive blood culture called from lab at 309 am. PT on q 4 hour naficillin iv and gentimycin per pharmacy and DR Lupe Garcia following. called and discussed approp coverage of gram posivive cocci in clusters and is appropriate. t 100.0 and bp lower after co rt le pain and recieved 25 mcg fentanyl after continued complaints despite tylenol administration. continues with lt le weakness lt ue weakness after cva. no swallow deficits or speech difficulty seen. jumps up out of bed multiple times sets off bed alarm. cooperative but confused.
--- NOTE | 2018-12-13 18:15 | NUR ---
NO ACUTE CHANGES THIS SHIFT. PATIENT HAS BEEN WALKING WITH PT AND SENIOR INTERACTIVE PRODUCER AND SHOWS MUCH IMPROVEMENT WITH BALANCE. STILL COMPLAINING OF PAIN TO CALF WHICH HAS BEEN TREATED WITH TYLENOL . PATIENT HAS HAD NO OTHER COMPLAINT. HE IS IMPULSIVE AND WILL GET OUT OF BED OR CHAIR WITHOUT USING CALL LIGHT. HE IS COMPLIANT , EXCEPT FOR USING HIS CALL LIGHT.
--- NOTE | 2018-12-14 05:31 | NUR ---
SHIFT SUMMARY PT ALERT, KNOWS BIRTHDAY, NAME, AND THAT HE IS IN [place]. THINKS THAT IT IS 1980. ABLE TO ANSWER SIMPLE YES OR NO QUESTIONS BUT BECOMES FRUSTRATED WITH ANYTHING MORE. PT ANXIOUS OFF AND ON THROUGHOUT THE NIGHT. HAS A DIFFICULT TIME COMPREHENDING THINGS. FOLLOWS DIRECTIONS INITIALLY BUT BECOMES DISTRACTED QUICKLY AND EASILY. FAMILY IN TO VISIT. WHEELED PT OUTSIDE FOR A SHORT PERIOD OF TIME. PT CONTINUED TO REPORT PAIN IN R CALF. NO REDNESS OR SWELLING NOTED. TYLENOL GIVEN. OTHERWISE NO ACUTE CHANGES. VSS. WILL CONTINUE TO MONITOR.
[2018-12-14 06:06] LABS: BASOPHILS ABSOLUTE AUTO 0.07 K/mm3 (0.00-0.23); BASOPHILS PERCENT AUTO 0 % (0-2); EOSINOPHILS ABSOLUTE AUTO 0.09 K/mm3 (0.00-0.68); EOSINOPHILS PERCENT AUTO 1 % (0-6); Hematocrit 32.9 % (37.0-53.0); Hemoglobin 10.7 g/dL (13.5-17.5); IMMATURE GRAN ABSOLUTE AUTO 0.16 K/mm3 (0.00-0.10); IMMATURE GRAN PERCENT AUTO 1 % (0-1); LYMPHOCYTES PERCENT AUTO 16 % (21-46); MONOCYTES ABSOLUTE AUTO 1.98 K/mm3 (0.16-1.47); MONOCYTES PERCENT AUTO 10 % (4-13); Mean Corpuscular HGB 29.2 pg (26.0-34.0); Mean Corpuscular HGB Conc 32.5 g/dL (31.5-36.5); NEUTROPHILS ABSOLUTE AUTO 13.76 K/mm3 (1.96-9.15); NEUTROPHILS PERCENT AUTO 72 % (41-73); Platelet Count 556 K/mm3 (150-400); RDW Standard Deviation 45.5 fL (35.1-46.3); Red Blood Cell Count 3.66 M/mm3 (4.30-5.90); White Blood Cell Count 19.06 K/mm3 (4.00-11.30)
[2018-12-14 06:15] LABS: Mean Corpuscular Volume 90 fL (80-100)
[2018-12-14 06:26] LABS: Albumin, Blood 2.3 g/dL (3.4-5.0); Anion Gap 6 mmol/L (6-16); Blood Urea Nitrogen 11 mg/dL (8-24); Bun/Creatinine Ratio 12.4 (12.0-20.0); CO2, Blood 24 mmol/L (21-32); Calcium, Blood 8.2 mg/dL (8.5-10.1); Chloride, Blood 101 mmol/L (98-108); Creatinine, Blood 0.89 mg/dL (0.60-1.20); Glomerular Filtration Rate >60 (60-); Glucose, Blood 123 mg/dL (70-99); Phosphorus, Blood 4.3 mg/dL (2.5-4.9); Potassium, Blood 4.6 mmol/L (3.5-5.5); Sodium, Blood 131 mmol/L (136-145)
--- NOTE | 2018-12-14 16:49 | NUR ---
PT IS COOPERATIVE WITH MEDICATIONS AND CARE. PT HAS BOTH BED ALARMS AND CHAIR ALARMS BUT IS NON COMPLIANT WITH REQUESTING A STANDBY ASSIST AND WILL REPEATEDLY SET OFF ALARMS. PT WAS EDUCATED ON USE OF CALL LIGHT FOR ASSIST BUT PT STILL NON COMPLIANT. PT DID HAVE COMPLAINTS OF LEG PAIN AND REQUESTED ACETOMINAPHEN FOR PAIN. PT HAS A POWERGLIDE IN HIS LEFT UPPER ARM WHICH FLUSHES EASILY. CALL LIGHT WITHIN REACH.
--- NOTE | 2018-12-15 04:40 | NUR ---
SHIFT SUMMARY PT RESTLESS OFF AND ON THIS EVENING. REPORTS FEELING BORED STUCK IN HIS ROOM ALL THE TIME. OFFERED TO LET HIM WALK IN THE SEAMAN BUT PT DID NOT WANT TO. FAMILY DID COME AND WALK PT DOWN OUTSIDE FOR A SHORT PERIOD OF TIME AND THEN BACK TO HIS ROOM. PT REPORTED PAIN IN LLE. MEDICATED W/ TYLENOL. PT HAD ANTIBIOTICS RUNNING THROUGH MOST OF THE NIGHT. CONTINUES TO BE CONFUSED. ALERT AND ORIENTED TO SELF AND PLACE. CANNOT ANSWER ANY OTHER QUESTIONS ABOUT ORIENTATION. CONTINUES TO THINK THAT IT IS 1981. PT RESTING IN BED AT THIS TIME. WILL CONTINUE TO MONITOR.
--- NOTE | 2018-12-15 17:36 | NUR ---
SHIFT SUMMARY NO ACUTE CHANGES. PATIENT UP SBA TO BR FOR LINE MANAGEMENT. MEDICATED X 1 FOR PAIN. DENIES NAUSEA AND SHORTNESS OF BREATH. PATIENT CONTINUES TO BE IMPULSIVE AND HAVE EPISODES OF CONFUSION. CALL LIGHT IN REACH, WILL CONTINUE TO MONITOR.
--- NOTE | 2018-12-16 05:25 | NUR ---
SHIFT SUMMARY NO ACUTE CHANGES. PT REMAINS PLEASANTLY CONFUSED. HOWEVER, PT BECOMES ANXIOUS AND RESTLESS AT TIMES. PT CAN ANSWER SIMPLE YES OR NO QUESTIONS. HAS A DIFFICULT TIME ANSWERING QUESTIONS THAT REQUIRE MORE OF AN ANSWER. PT CONTINUES TO COMPLAIN OF PAIN IN LEFT LEG THIS EVENING. MEDICATED W/ TYLENOL. ASKED PT TO RATE HIS PAIN ON A SCALE OF 0-10 AND AT FIRST HE SAID "0", THEN HE SAID "1", THEN HE SAID HE DIDN'T KNOW. NO FAMILY OR FRIENDS IN TO VISIT THIS EVENING. ASSISTED PT IN CALLING HIS DAUGHTER SEVERAL TIMES BUT DAUGHTER DID NOT SPEECH THERAPY TEACHER TONIGHT. PT SETS OFF BED ALARM FREQUENTLY. PT IS FORGETFUL AND HAS POOR DECISION MAKING SKILLS. PT LYING IN BED AT THIS TIME. WILL CONTINUE TO MONITOR.
[2018-12-16 09:03] LABS: Hematocrit 33.6 % (37.0-53.0); Hemoglobin 10.9 g/dL (13.5-17.5); Mean Corpuscular HGB 29.6 pg (26.0-34.0); Mean Corpuscular HGB Conc 32.4 g/dL (31.5-36.5); Mean Corpuscular Volume 91 fL (80-100); Mean Platelet Volume 8.9 fL (9.1-12.4); Platelet Count 567 K/mm3 (150-400); RDW Coefficient Variation 13.9 % (11.7-14.2); RDW Standard Deviation 46.8 fL (35.1-46.3); Red Blood Cell Count 3.68 M/mm3 (4.30-5.90); White Blood Cell Count 15.59 K/mm3 (4.00-11.30)
[2018-12-16 09:19] LABS: Albumin, Blood 2.3 g/dL (3.4-5.0); Anion Gap 5 mmol/L (6-16); Blood Urea Nitrogen 9 mg/dL (8-24); Bun/Creatinine Ratio 10.7 (12.0-20.0); CO2, Blood 25 mmol/L (21-32); Chloride, Blood 101 mmol/L (98-108); Creatinine, Blood 0.84 mg/dL (0.60-1.20); Glomerular Filtration Rate >60 (60-); Glucose, Blood 178 mg/dL (70-99); Phosphorus, Blood 3.5 mg/dL (2.5-4.9); Potassium, Blood 4.3 mmol/L (3.5-5.5); Sodium, Blood 131 mmol/L (136-145)
[2018-12-16 09:23] LABS: Gentamicin, Trough 0.7 ug/mL (0.0-1.9)
--- NOTE | 2018-12-16 18:07 | NUR ---
ALERT TO SELF, FAMILY AND SURROUNDINGS. STEADY GAIT IN ROOM. COOPERATIVE. AWARE WILL BE ON IV ANTIBIOTICS FOR AT LEAST 6 WEEKS. IV PATENT BUT UNABLE TO DRAW BLOOD FOR LAB TODAY. UNLABORED RESPIRATIONS. DISCONNECTED FROM IV SO MULTIPLE FRIENDS/RELATIVES CAN TAKE HIM OUTSIDE. PER NIGHT RN RELATIVES HAVE BEEN ADVISED TO NOT GIVE HIM ANY LEGAL OR ILLEGAL DRUGS WHILE OUTSIDE. BED IN LOW POSITION. WCROSALIE.
--- NOTE | 2018-12-17 04:45 | NUR ---
SHIFT SUMMARY PT ADMITTED FOR STROKE. FULL CODE. REGULAR DIET. UP IN CHAIR FOR MEALS. PT MUST BE AT 90 DEGREES FOR MEALS. TAKES MEDICATIONS WHOLE 1 AT A TIME. POWERGLIDE TO L UPPER ARM THAT DOES NOT DRAW. PTS CAMERA ON PER REPORT. 1 PERSON ASSIST WITH TRANSFERS. THE PT PRESENTED TO THE ED WITH AMS AFTER PTS ROOMATES STATED PT NOT RESPONDING. THE PT ADMITTED FOR STROKE WITH A HISTORY OF RIGHT FRONTAL LOBE HEMORRHAGIC STROKE. 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 THE PT WILL LIKELY NEED TO REMAIN IN THE HOSPITAL TO COMPLETE IV ANTIBIOTIC THERAPY PLACEMENT WILL BE DIFFICULT DUE TO PTS DRUG USE. THE PT CONTINUES TO APPEAR CONFUSED AND DIFFICULT TO REDIRECT AT TIMES BUT COOPERATIVE. THE PT HAS APPEARED TO SLEEP COMFORTABLY MOST OF THE NIGHT WITH NO APPARENT SIGNS OF ACUTE DISTRESS. BED ALARM FOR SAFETY. FREQUENT VISUAL CHECKS IT DOES NOT APPEAR THAT PT USES CALL LIGHT APPROPRIATELY.
--- NOTE | 2018-12-17 19:05 | NUR ---
ALERT TO SELF AND FAMILY. MOST OF TIME KNOWS WHERE HE IS. FAMILY OFF AND ON IN ROOM. PATIENT AWARE WILL NOT BE ABLE TO GO TO LOCAL SNF AND STS HE WILL GO OUT OF TOWN IF NEEDED. ADVISED IF NOT ACCEPTED THEN WILL STAY HERE FOR DURATION OF ANTIBIOTIC TREATMENT. ASKS ABOUT GOING HOME AND DOING OUTPT. ADVISED NO BECAUSE OF HIS METH/HEROIN ABUSE. STEADY GAIT IN ROOM. UNLABORED RESPIRATIONS. REPORT TO NIGHT RN
--- NOTE | 2018-12-18 08:02 | NUR ---
SHIFT SUMMARY: Pt was alert and cooperative. Reports headache and fever noted in 100.5. Tylenol given with scheduled meds. IV infusing to powerglide in Left AC. Noticed some leakage, tubing was loose. Tightened up. IV site WNL. Denied any chest pain or SOB. During the night he had periods of confusion not knowing where he was at or even what was going on, but this was mixed in between periods of oriented. It would just come and go. Temp came down to 99.4 and pain resolved. He remained restless, tossing and turning. Did not complain of any discomfort or issues during his restlessness. IV had to be wrapped to prevent occlusion. Antibotics and fluids infused fine throughout the night. He slept in short periods off and on between meds. But did not have any complaints. He remained cooperative throughout the shift.
[2018-12-18 12:53] LABS: BASOPHILS ABSOLUTE AUTO 0.13 K/mm3 (0.00-0.23); BASOPHILS PERCENT AUTO 1 % (0-2); EOSINOPHILS ABSOLUTE AUTO 0.06 K/mm3 (0.00-0.68); EOSINOPHILS PERCENT AUTO 0 % (0-6); Hematocrit 37.4 % (37.0-53.0); Hemoglobin 12.1 g/dL (13.5-17.5); IMMATURE GRAN ABSOLUTE AUTO 0.23 K/mm3 (0.00-0.10); IMMATURE GRAN PERCENT AUTO 1 % (0-1); LYMPHOCYTES ABSOLUTE AUTO 1.88 K/mm3 (0.84-5.20); LYMPHOCYTES PERCENT AUTO 7 % (21-46); MONOCYTES ABSOLUTE AUTO 2.33 K/mm3 (0.16-1.47); MONOCYTES PERCENT AUTO 8 % (4-13); Mean Corpuscular HGB 29.5 pg (26.0-34.0); Mean Corpuscular HGB Conc 32.4 g/dL (31.5-36.5); Mean Corpuscular Volume 91 fL (80-100); Mean Platelet Volume 8.7 fL (9.1-12.4); NEUTROPHILS ABSOLUTE AUTO 24.14 K/mm3 (1.96-9.15); NEUTROPHILS PERCENT AUTO 84 % (41-73); Platelet Count 600 K/mm3 (150-400); RDW Coefficient Variation 13.8 % (11.7-14.2); RDW Standard Deviation 46.5 fL (35.1-46.3); White Blood Cell Count 28.77 K/mm3 (4.00-11.30)
[2018-12-18 13:12] LABS: Albumin, Blood 2.5 g/dL (3.4-5.0); Anion Gap 7 mmol/L (6-16); Blood Urea Nitrogen 8 mg/dL (8-24); Bun/Creatinine Ratio 8.8 (12.0-20.0); CO2, Blood 26 mmol/L (21-32); Calcium, Blood 8.5 mg/dL (8.5-10.1); Chloride, Blood 95 mmol/L (98-108); Creatinine, Blood 0.91 mg/dL (0.60-1.20); Glomerular Filtration Rate >60 (60-); Glucose, Blood 147 mg/dL (70-99); Phosphorus, Blood 3.3 mg/dL (2.5-4.9); Potassium, Blood 3.9 mmol/L (3.5-5.5); Sodium, Blood 128 mmol/L (136-145)
--- NOTE | 2018-12-18 15:28 | NUR ---
NOTIFIED DR. ZULETA PT'S HR 135 AND TEMP 102.8. NOTIFIED DR. ZULETA PT DOES NOT HAVE ANY CARDIAC MEDS ORDERED. DR. ZULETA SAID SHE WILL PUT IN ORDERS FOR FLUIDS. NO OTHER NEW ORDERS AT THIS TIME.
--- NOTE | 2018-12-18 19:14 | NUR ---
SHIFT SUMMARY- PT AXO TO SELF, PLACE AND FOLLOWING DIRECTIONS. PT DENIES PAIN. DENIES N/V. DENIES SOB. RESP E/U ON RA. PT HAS HAD A FEVER THIS SHIFT. MEDS GIVEN PER EMAR. PT HAS BEEN RUNNING TACHYCARDIC. DR. ZULETA AWARE. SEE PREVIOUS NOTE. NO OTHER SIGNIFICANT CHANGES THIS SHIFT.
[2018-12-19 05:32] LABS: BASOPHILS ABSOLUTE AUTO 0.16 K/mm3 (0.00-0.23); BASOPHILS PERCENT AUTO 0 % (0-2); EOSINOPHILS ABSOLUTE AUTO 0.06 K/mm3 (0.00-0.68); EOSINOPHILS PERCENT AUTO 0 % (0-6); Hematocrit 35.8 % (37.0-53.0); Hemoglobin 11.9 g/dL (13.5-17.5); IMMATURE GRAN ABSOLUTE AUTO 0.42 K/mm3 (0.00-0.10); IMMATURE GRAN PERCENT AUTO 1 % (0-1); LYMPHOCYTES ABSOLUTE AUTO 3.23 K/mm3 (0.84-5.20); LYMPHOCYTES PERCENT AUTO 9 % (21-46); MONOCYTES ABSOLUTE AUTO 3.81 K/mm3 (0.16-1.47); MONOCYTES PERCENT AUTO 10 % (4-13); Mean Corpuscular HGB 29.8 pg (26.0-34.0); Mean Corpuscular HGB Conc 33.2 g/dL (31.5-36.5); Mean Corpuscular Volume 90 fL (80-100); Mean Platelet Volume 8.6 fL (9.1-12.4); NEUTROPHILS ABSOLUTE AUTO 29.47 K/mm3 (1.96-9.15); NEUTROPHILS PERCENT AUTO 79 % (41-73); Platelet Count 531 K/mm3 (150-400); RDW Coefficient Variation 13.8 % (11.7-14.2); RDW Standard Deviation 45.6 fL (35.1-46.3); Red Blood Cell Count 3.99 M/mm3 (4.30-5.90); White Blood Cell Count 37.15 K/mm3 (4.00-11.30)
--- NOTE | 2018-12-19 06:09 | NUR ---
SHIFT SUMMARY: PT ALERT AND COOPERATIVE AT BEGINNING OF THE SHIFT. WAS ABLE TO STATE PLACE NAME AND . THIS PROGRESSIVLY CHANGED OFF AND ON THROUGHOUT THE NIGHT WITH FREQUENT UP AND DOWN WITH NO CALLING FOR ASSISTANCE TO THE BATHROOM. BY MID MORNING HE WAS JUMPING OUT OF BED TO THE BATHROOM WOULD STAND THERE WITH OUT USING AND WALK BACK TO BED. EACH TIME HE WAS EASILY DIRECTED BACK TO BED. AT THOSE TIMES HE TENDS TO PULL ON HIS IV LINES SO IT WAS WRAPPED TO HELP SECURE IT BETTER. HE SPIKED A TEMP AT MIDNIGHT TO 102.7, TYLENOL WAS GIVEN AND HE WAS RECHECKED IN 40MINS TO A TEMP OF 100.2. HE JUST STARTED TO SPIKE ANOTHER TEMP THIS AM TYLENOL WAS GIVEN. AT THESE TIMES WHEN TEMP IS RISING HE HAS INCREASE IN PULSE TO 116 AND 122, GIVING HIM AN ELEVATED VIEW SCORE. PULSE RETURNED TO NORMAL WITH TEMP DECLINE. HE WILL ALSO GET FLUSHED WHEN TEMP IS UP. INCONTINET ALSO OF URINE WITH ONE ACCIDENT TONIGHT. HE SLEPT OFF AND ON BUT REMAINED COOPERATIVE. IV REMAINED PATIENT.
[2018-12-19 06:11] LABS: Albumin, Blood 2.2 g/dL (3.4-5.0); Anion Gap 7 mmol/L (6-16); Blood Urea Nitrogen 8 mg/dL (8-24); Bun/Creatinine Ratio 7.7 (12.0-20.0); CO2, Blood 26 mmol/L (21-32); Calcium, Blood 8.1 mg/dL (8.5-10.1); Chloride, Blood 98 mmol/L (98-108); Creatinine, Blood 1.04 mg/dL (0.60-1.20); Glomerular Filtration Rate >60 (60-); Glucose, Blood 114 mg/dL (70-99); Phosphorus, Blood 3.4 mg/dL (2.5-4.9); Potassium, Blood 4.1 mmol/L (3.5-5.5); Sodium, Blood 131 mmol/L (136-145)
[2018-12-19 08:09] LABS: Source, Urine Clean Catch
[2018-12-19 08:13] LABS: Appearance, Urine Clear (Clear); Bilirubin, Urine Neg (Neg); Blood, Urine 5+ (Neg); Color, Urine Yellow (P-Yellow); Glucose Qualitative, Urine Neg (Neg); Ketones, Urine Neg (Neg); Leukocyte Esterase, Urine 1+ (Neg); Nitrite, Urine Neg (Neg); Protein, Urine 2+ (Neg); Specific Gravity, Urine 1.015 (1.003-1.022); Urobilinogen, Urine 1+ (Normal)
[2018-12-19 08:33] LABS: U Amphetamine Screen Not Detected; U Barbituate Screen Not Detected; U Benzodiazapine Screen Not Detected; U Buprenorphine Screen Not Detected; U Cannabinoids Screen Not Detected; U Cocaine Screen Not Detected; U Methadone Screen Not Detected; U Methamphetamine Screen Not Detected; U Opiates Screen DETECTED; U Oxycodone Screen Not Detected; U Phencyclidine Screen Not Detected; U Propoxyphene Screen Not Detected
[2018-12-19 08:44] LABS: Bacteria Few /hpf; Squamous Epithelial Cells Few /hpf (Few)
[2018-12-19 09:50] LABS: Gentamicin, Trough 1.6 ug/mL (0.0-1.9)
--- NOTE | 2018-12-19 19:50 | NUR ---
SUMMARY- PT ALERT TO SELF, FAMILY AND SURROUNDINGS. IS DIRECTABLE, GETS UP IN ROOM INDEPENDANT AND IS STEADY ON FEET. HAD MULT EPISODES OF LOOSE STOOL TODAY, ORANGE IN COLOR (RIFAMPIN)- C/O HEADACHE, MEDICATED WITH TYLENOL AND SUBSEQUENT RELEIF. DR NICHOLS CONSULTED ON PT TODAY. WILL OBTAIN A STOOL SPEC WITH NEXT EPISODE. SENT URINE TODAY. TEMP MAX 100.2, AT ONE POINT PT WAS SHIVERING AND STATED HE FELT CHILLED. CONT WITH NS AT 150ML/HR. SISTER IN TO VISIT PT TODAY.
[2018-12-20 05:17] LABS: BASOPHILS ABSOLUTE AUTO 0.14 K/mm3 (0.00-0.23); BASOPHILS PERCENT AUTO 0 % (0-2); EOSINOPHILS ABSOLUTE AUTO 0.07 K/mm3 (0.00-0.68); EOSINOPHILS PERCENT AUTO 0 % (0-6); Hematocrit 32.6 % (37.0-53.0); IMMATURE GRAN ABSOLUTE AUTO 0.47 K/mm3 (0.00-0.10); IMMATURE GRAN PERCENT AUTO 1 % (0-1); LYMPHOCYTES ABSOLUTE AUTO 3.53 K/mm3 (0.84-5.20); LYMPHOCYTES PERCENT AUTO 11 % (21-46); MONOCYTES ABSOLUTE AUTO 3.06 K/mm3 (0.16-1.47); MONOCYTES PERCENT AUTO 9 % (4-13); Mean Corpuscular HGB 30.1 pg (26.0-34.0); Mean Corpuscular HGB Conc 33.7 g/dL (31.5-36.5); Mean Corpuscular Volume 89 fL (80-100); Mean Platelet Volume 8.8 fL (9.1-12.4); NEUTROPHILS ABSOLUTE AUTO 26.05 K/mm3 (1.96-9.15); NEUTROPHILS PERCENT AUTO 78 % (41-73); Platelet Count 455 K/mm3 (150-400); RDW Coefficient Variation 14.1 % (11.7-14.2); RDW Standard Deviation 45.7 fL (35.1-46.3); Red Blood Cell Count 3.66 M/mm3 (4.30-5.90); White Blood Cell Count 33.32 K/mm3 (4.00-11.30)
[2018-12-20 06:07] LABS: Albumin, Blood 1.9 g/dL (3.4-5.0); Anion Gap 10 mmol/L (6-16); Blood Urea Nitrogen 9 mg/dL (8-24); Bun/Creatinine Ratio 9.1 (12.0-20.0); CO2, Blood 20 mmol/L (21-32); Chloride, Blood 100 mmol/L (98-108); Creatinine, Blood 0.99 mg/dL (0.60-1.20); Glomerular Filtration Rate >60 (60-); Glucose, Blood 127 mg/dL (70-99); Phosphorus, Blood 3.5 mg/dL (2.5-4.9); Potassium, Blood 3.6 mmol/L (3.5-5.5); Sodium, Blood 130 mmol/L (136-145)
--- NOTE | 2018-12-20 07:18 | NUR ---
Rn summary: Patient is quiet and withdrawn, but can talk clearly. Pt was irritable at beginning of shift. Daughter took him outside for about 15min. Pt was less irritable afterward. Patient has had loose stool. He has been reminded to get a sample but he keeps taking the hat out of the toilet. Patient did have and incontinent stool this am. Pt is able to get up to BR independantly. Pt did have a temp of 102.5. Pt medicated with tylenol 650 mg and temp did go down to 100.0. Patient this am with lower BP and Temp of 100.9 increased heart rate which has been his norm since admit. Reported to charge nurse, she states it is his norm. Pt is receiving IV fluids and antibiotics as ordered. Report to day shift RN. Call light is in reach.
--- NOTE | 2018-12-20 08:28 | NUR ---
LEFT RETAIL EVENT ASSISTANT WEAKER THEN RIGHT AND IS DELAYED, NOTIFED DR ZULETA. NO NEW ORDERS.
--- NOTE | 2018-12-20 10:34 | NUR ---
Echocardiogram completed.
--- NOTE | 2018-12-20 16:48 | NUR ---
SHIFT SUMMARY PT A&Ox2. CALM AND COOPERATIVE WITH CARE. IMPULSIVE AT TIMES. PT RESTING IN BED DURING SHIFT. UP IN ROOM IND. PT DENIES PAIN, SOB AND N/V. LEFT SHIPPING PACKER DEFICET NOTED, SHIPPING PACKER IN WEAK AND DELAYED IN RESPONSE. PT RECEIVING IV ANTIBIOTICS. POWERGLIDE "FELL OUT" THIS AM, NEW POWERGLDE PLACE. ECHO COMPLETED DURING SHIFT. STOOL SPECIMEN SENT FOR C.DIFF AND CAME BACK NEGATIVE. ELVATED TEMP AND HR NOTED, MEDICATED WITH TYLENOL PER ORDERS FOR TEMP. OTHER VSS. NO OTHER ACUTE CHANGES NOTED DURING SHIFT. WILL CONTINUE TO MONITOR UNTIL REPORT GIVEN TO ONCOMING RN.
--- NOTE | 2018-12-20 19:45 | NUR ---
Review of patietn progress with OT and nursing. visit with patient today. He dienies a headache or pain no nsusea or constipation. theraputic time with patient and intercation asked him what he wants and needs. Pt tearful and unable to express his needs. Will speak with ot/pt about potential care plan
--- NOTE | 2018-12-21 04:52 | NUR ---
SHIFT SUMMARY PT HAD NO ISSUES NOTED. PT SLEPT T/O SHIFT. PT REQUESTED A SHOWER EARLY THIS AM. PT BREATHING EASY AND CALL LIGHT IN REACH.
[2018-12-21 09:48] LABS: BASOPHILS ABSOLUTE AUTO 0.13 K/mm3 (0.00-0.23); BASOPHILS PERCENT AUTO 1 % (0-2); EOSINOPHILS ABSOLUTE AUTO 0.08 K/mm3 (0.00-0.68); EOSINOPHILS PERCENT AUTO 0 % (0-6); Hematocrit 29.5 % (37.0-53.0); Hemoglobin 9.9 g/dL (13.5-17.5); IMMATURE GRAN ABSOLUTE AUTO 0.22 K/mm3 (0.00-0.10); IMMATURE GRAN PERCENT AUTO 1 % (0-1); LYMPHOCYTES ABSOLUTE AUTO 2.76 K/mm3 (0.84-5.20); LYMPHOCYTES PERCENT AUTO 10 % (21-46); MONOCYTES PERCENT AUTO 8 % (4-13); Mean Corpuscular HGB 29.1 pg (26.0-34.0); Mean Corpuscular HGB Conc 33.6 g/dL (31.5-36.5); Mean Corpuscular Volume 87 fL (80-100); Mean Platelet Volume 8.7 fL (9.1-12.4); NEUTROPHILS ABSOLUTE AUTO 22.78 K/mm3 (1.96-9.15); NEUTROPHILS PERCENT AUTO 81 % (41-73); Platelet Count 404 K/mm3 (150-400); RDW Coefficient Variation 14.3 % (11.7-14.2); RDW Standard Deviation 45.4 fL (35.1-46.3); White Blood Cell Count 28.17 K/mm3 (4.00-11.30)
[2018-12-21 10:05] LABS: Albumin, Blood 1.8 g/dL (3.4-5.0); Anion Gap 7 mmol/L (6-16); Blood Urea Nitrogen 6 mg/dL (8-24); Bun/Creatinine Ratio 6.2 (12.0-20.0); CO2, Blood 23 mmol/L (21-32); Calcium, Blood 7.5 mg/dL (8.5-10.1); Chloride, Blood 103 mmol/L (98-108); Creatinine, Blood 0.97 mg/dL (0.60-1.20); Glomerular Filtration Rate >60 (60-); Glucose, Blood 127 mg/dL (70-99); Phosphorus, Blood 2.7 mg/dL (2.5-4.9); Potassium, Blood 3.2 mmol/L (3.5-5.5); Sodium, Blood 133 mmol/L (136-145)
--- NOTE | 2018-12-21 14:37 | NUR ---
PROVIDER CONSULT CARDIOLOGY CONSULT, ORDERED BY DR ZULETA YESTERDAY AFTERNOON 12/20/18 TO BE CALLED TODAY, FOR CHILO. DR GODINEZ NOT ORTHOPEDIC PHYSICAL THERAPIST TODAY. SPOKE WITH ONCALL PHYSICIAN DR JONES. HE INDICATED THAT THE CHILO COULD NOT BE DONE UNTIL SUNDAY. DR MCFADDEN INFORMED. PT TO BE NPO AFTER MIDNIGHT SUNDAY IN PREPARATION FOR CHILO ON SUNDAY.
--- NOTE | 2018-12-21 18:40 | NUR ---
NO ACUTE CHANGES NOTED THIS SHIFT, PT HAS BEEN PLEASANT AND COOPERATIVE WITH CARE T/O THE SHIFT. HE DID GO OUTSIDE TO SMOKE VIA W/C WITH A VISITOR THIS AFTERNOON, WAS OUTSIDE FOR APPROXIMATELY 20 MINUTES. PT REPORTS HAVING SOME GAMINO IN HIS ROOM, SECURITY CALLED WITH PT AGREEMENT AND GAMINO COUNTED, PLACED IN ENVELOPE AND INTO SAFE. WILL CONTINUE TO MONITOR AND REPORT TO ONCOMING RN
--- NOTE | 2018-12-21 22:44 | NUR ---
PT HAD A VEW SCORE OF 4 AND 5. PT HAS BEEN TRENDING HIGH VEW SCORES. ALDAIR PT SCORED VEW OF 5 POST GOING OUTSIDE TO SMOKE. PT COMPLAINED OF SOB AND O2 VIA NC WAS PLACED. PT EVENTUALLY DENIED SOB AND REMOVED NC. PT EDUCATED ON NOT GOING OUTSIDE TO SMOKE.
--- NOTE | 2018-12-22 03:48 | NUR ---
PT HAS SOME PAUL BLOOD NOTED IN TOILET POST BM. PT DENIES ANY HEMORRHOIDS OR ABD PAIN.
--- NOTE | 2018-12-22 04:05 | NUR ---
SHIFT SUMMARY PT HAD EPISODES OF INCREASED VEW SCORES. PT ASSESSED AND PT VS ARE TRENDING WITH PREVIOUS SHIFTS. PT TEMP TX PER EMAR. PT DID GO OUT TO SMOKE AND CAME BACK WITH INCREASED SOB. PT EDUCATED ABOUT GOING OUT TO SMOKE. PT WAS INCOTINENT THIS AM AND TOOK A SHOWER. PT IS CURRENTLY AWAKE WATCHING TV. CALL LIGHT IN REACH.
[2018-12-22 08:08] LABS: BASOPHILS ABSOLUTE AUTO 0.13 K/mm3 (0.00-0.23); BASOPHILS PERCENT AUTO 1 % (0-2); EOSINOPHILS ABSOLUTE AUTO 0.16 K/mm3 (0.00-0.68); EOSINOPHILS PERCENT AUTO 1 % (0-6); Hematocrit 29.8 % (37.0-53.0); IMMATURE GRAN ABSOLUTE AUTO 0.14 K/mm3 (0.00-0.10); IMMATURE GRAN PERCENT AUTO 1 % (0-1); LYMPHOCYTES ABSOLUTE AUTO 2.26 K/mm3 (0.84-5.20); LYMPHOCYTES PERCENT AUTO 11 % (21-46); MONOCYTES ABSOLUTE AUTO 1.97 K/mm3 (0.16-1.47); MONOCYTES PERCENT AUTO 9 % (4-13); Mean Corpuscular HGB 29.5 pg (26.0-34.0); Mean Corpuscular HGB Conc 33.6 g/dL (31.5-36.5); Mean Corpuscular Volume 88 fL (80-100); Mean Platelet Volume 8.7 fL (9.1-12.4); NEUTROPHILS ABSOLUTE AUTO 16.37 K/mm3 (1.96-9.15); NEUTROPHILS PERCENT AUTO 78 % (41-73); Platelet Count 383 K/mm3 (150-400); RDW Coefficient Variation 14.5 % (11.7-14.2); RDW Standard Deviation 45.9 fL (35.1-46.3); Red Blood Cell Count 3.39 M/mm3 (4.30-5.90); White Blood Cell Count 21.03 K/mm3 (4.00-11.30)
[2018-12-22 08:26] LABS: Albumin, Blood 1.8 g/dL (3.4-5.0); Anion Gap 8 mmol/L (6-16); Blood Urea Nitrogen 5 mg/dL (8-24); Bun/Creatinine Ratio 5.4 (12.0-20.0); CO2, Blood 23 mmol/L (21-32); Calcium, Blood 7.7 mg/dL (8.5-10.1); Chloride, Blood 104 mmol/L (98-108); Creatinine, Blood 0.93 mg/dL (0.60-1.20); Glomerular Filtration Rate >60 (60-); Glucose, Blood 142 mg/dL (70-99); Magnesium, Blood 1.9 mg/dL (1.6-2.4); Phosphorus, Blood 2.6 mg/dL (2.5-4.9); Potassium, Blood 3.2 mmol/L (3.5-5.5); Sodium, Blood 135 mmol/L (136-145)
[2018-12-22 11:45] LABS: Gentamicin, Trough <0.2 ug/mL (0.0-1.9)
[2018-12-22 13:01] LABS: Magnesium, Blood 1.9 mg/dL (1.6-2.4)
[2018-12-22 13:03] LABS: Thyroid Stimulating Hormone 2.04 uIU/mL (0.360-4.800)
--- NOTE | 2018-12-22 15:01 | NUR ---
PT GOING OUT TO SMOKE, REFUSING TO STAY INSIDE. PT IN A REGULAR W/C AND WHEELING HIMSELF OUT.
--- NOTE | 2018-12-22 15:30 | NUR ---
PT RETURNED TO ROOM WITHOUT DIFFICULTY. WILL CONTINUE TO MONITOR
--- NOTE | 2018-12-22 19:01 | NUR ---
NO ACUTE CHANGES NOTED THIS SHIFT, REPORT GIVEN TO ONCOMING RN
--- NOTE | 2018-12-22 19:55 | NUR ---
PT WENT OUT TO SMOKE. MANAGER SHIP CALLED AND STATED PT HEART RATE WAS IN 170'S. PT WAS BROUGHT BACK TO ROOM AND ASSESSED. PT HAD TEMP, SOB AND HIGH HEART RATE. PT TX PER EMAR. HEART CAME DOWN SOME POST LOPRESSOR. PT GIVEN TYLENOL FOR TEMP. ICE PACKS PLACED ON PT TO HELP COOL PT. O2 VIA NC PLACED WITH 2 LPM. WILL CONTINUE TO MONITOR PT.
--- NOTE | 2018-12-23 04:17 | NUR ---
SHIFT SUMMARY PT HAD SEVERAL HIGH VEW SCORES THIS SHIFT. PT HAS RETURNED TO HIS NORMAL VITALS POST TX. PT HAS BEEN EDUCATED REPEATEDLY ABOUT GOING OUT TO SMOKE. PT WAS UP LATE WITH VISITORS. PT IS CURRENTLY BREATHING EASY AND SLEEPING. CALL LIGHT IN REACH.
[2018-12-23 05:55] LABS: BASOPHILS ABSOLUTE AUTO 0.14 K/mm3 (0.00-0.23); BASOPHILS PERCENT AUTO 1 % (0-2); EOSINOPHILS ABSOLUTE AUTO 0.26 K/mm3 (0.00-0.68); EOSINOPHILS PERCENT AUTO 1 % (0-6); Hematocrit 29.7 % (37.0-53.0); Hemoglobin 9.8 g/dL (13.5-17.5); IMMATURE GRAN ABSOLUTE AUTO 0.17 K/mm3 (0.00-0.10); IMMATURE GRAN PERCENT AUTO 1 % (0-1); LYMPHOCYTES ABSOLUTE AUTO 2.87 K/mm3 (0.84-5.20); LYMPHOCYTES PERCENT AUTO 12 % (21-46); MONOCYTES ABSOLUTE AUTO 2.25 K/mm3 (0.16-1.47); MONOCYTES PERCENT AUTO 9 % (4-13); Mean Corpuscular HGB 29.3 pg (26.0-34.0); Mean Corpuscular Volume 89 fL (80-100); Mean Platelet Volume 8.9 fL (9.1-12.4); NEUTROPHILS ABSOLUTE AUTO 19.32 K/mm3 (1.96-9.15); NEUTROPHILS PERCENT AUTO 77 % (41-73); Platelet Count 363 K/mm3 (150-400); RDW Coefficient Variation 14.6 % (11.7-14.2); Red Blood Cell Count 3.35 M/mm3 (4.30-5.90); White Blood Cell Count 25.01 K/mm3 (4.00-11.30)
[2018-12-23 06:08] LABS: Albumin, Blood 1.8 g/dL (3.4-5.0); Anion Gap 7 mmol/L (6-16); Blood Urea Nitrogen 5 mg/dL (8-24); CO2, Blood 23 mmol/L (21-32); Calcium, Blood 7.7 mg/dL (8.5-10.1); Chloride, Blood 104 mmol/L (98-108); Creatinine, Blood 0.84 mg/dL (0.60-1.20); Glomerular Filtration Rate >60 (60-); Glucose, Blood 135 mg/dL (70-99); Phosphorus, Blood 2.7 mg/dL (2.5-4.9); Potassium, Blood 3.4 mmol/L (3.5-5.5); Sodium, Blood 134 mmol/L (136-145)
[2018-12-23 10:53] LABS: U Amphetamine Screen Not Detected; U Barbituate Screen Not Detected; U Benzodiazapine Screen Not Detected; U Buprenorphine Screen Not Detected; U Cannabinoids Screen Not Detected; U Cocaine Screen Not Detected; U Methadone Screen Not Detected; U Methamphetamine Screen Not Detected; U Opiates Screen Not Detected; U Oxycodone Screen Not Detected; U Phencyclidine Screen Not Detected; U Propoxyphene Screen Not Detected
--- NOTE | 2018-12-23 10:56 | NUR ---
ARRIVAL PT ARRIVED TO UNIT FROM MEDICAL FLOOR APPROX. 0845. PT A&O X4. ASSESSMENT COMPLETED. VITAL SIGNS STABLE. PT BLOOD PRESSURE BEFORE ARRIVAL WAS LOW. BOLUS WAS FINISHED BEFORE ARRIVAL TO UNIT. CHECKED ON ARRIVAL AND SBP 109. WILL CONTINUE TO MONITOR THIS. SPOKE WITH PT ABOUT NOT GOING OUTSIDE TO SMOKE. PT AGREED TO STAY IN ROOM. ORIENTED PT TO ROOM, UNIT AND POLICIES. PT TO UNDERGO CHILO THIS MORNING. HEART CENTER AT BEDSIDE TO COMPLETE CHILO. PHYSICIAN NOTIFIED THAT PT TO BE COBRA TRANSFER TO [facility]. WILL BEGIN THIS PROCESS.
--- NOTE | 2018-12-23 11:06 | NUR ---
0700 VS SHOWED BP 79 SYSTOLIC, HR 120S. DR MCFADDEN CALLED, ORDERED 500ML BOLUS. SHE ORDERED PCU TRANSFER. PT ALERT AND ORIENTED, STATES HE FEELS NORMAL. PT NPO FOR CHILO. REPORT CALLED TO PCU, PT TRANSPORTED AT 0845
--- NOTE | 2018-12-23 11:16 | NUR ---
PT AWAKE AND VERBALIZING WELL POST CHILO PROCEDURE. PT IS ABLE TO DRINK CLEAR LIQ /S DIFFICULTY. TOTAL OF 300ML NS IN. REPORT GIVEN TO DISPLAY AND BANNER DESIGNER.
--- NOTE | 2018-12-23 15:48 | NUR ---
NOTE RECIEVED BED ASSIGNMENT AT [facility]. COBRA TRANSFER PAPERWORK COMPLETED. ANSWERED ALL QUESTIONS FROM PT. PT VITAL SIGNS STABLE. NO S/SX OF ACUTE DISTRESS AT THIS TIME. [facility] TO TRANSFER PT TO [place]. WILL CONTINUE TO MONITOR PT UNTIL PT DEPARTS UNTIL WITH [facility].
--- NOTE | 2018-12-23 16:32 | NUR ---
PT DEPARTED UNIT WITH [facility] STAFF 1629.
--- NOTE | 2018-12-23 17:04 | NUR ---
CALLED [facility] TO GIVE REPORT. NURSE UNAVAIBLE AT THIS TIME. LEFT NUMBER TO UNIT AND NURSE TO CALL BACK TO GET REPORT.
== END 2018-12-23 17:00 | disposition short-term general hospital (02) | DRG 871 ==
LOC: ER 14:23 → ERHOLD 14:24 → PCU 14:25 → ER 17:12 → PCU 17:12 → ERHOLD 17:12 → PCU 18:51 → ERHOLD 18:57 → MEDS 18:57 → PCU 20:01 → MEDS 20:01 → PCU 20:01 → MEDS 12-04 12:59 → PCU 12-04 13:00 → MEDS 12-08 18:30 → PCU 12-23 08:47
PROVIDERS: Emergency Medicine; Internal Medicine; Internal Medicine Infectious Disease; Pharmacist; ADMIT Internal Medicine
DX: A41.01 Sepsis due to Methicillin susceptible Staphylococcus aureus (principal); I63.9 Cerebral infarction, unspecified; G93.41 Metabolic encephalopathy; I38 Endocarditis, valve unspecified; E87.1 Hypo-osmolality and hyponatremia; K52.1 Toxic gastroenteritis and colitis; I76 Septic arterial embolism; R65.20 Severe sepsis without septic shock; Z95.2 Presence of prosthetic heart valve; E87.6 Hypokalemia; F19.90 Other psychoactive substance use, unspecified, uncomplicated; T36.95XA Adverse effect of unspecified systemic antibiotic, initial encounter; G31.84 Mild cognitive impairment of uncertain or unknown etiology
CPT/HCPCS: 36415; 36600; 70450; 71045; 71046; 80048; 80053; 80069; 80170; 80202; 81001; 82140; 82803; 82947; 83605; 83735; 84100; 84443; 85025; 85027; 86803; 87040; 87077; 87086; 87147; 87186; 87389; 87493; 92507; 92523; 92526; 92610; 93005; 93010; 93306; 93308; 93312; 93321; 93325; 93971; 96361; 96372; 96374; 96375; 96376; 97110; 97116; 97162; 97166; 97530; 97535; 99285-25; C9113; G0378; G0480; G0515; J0692; J1580; J1650; J1953; J2310; J2704; J3010; J3370; J3480; J7030; J7040; J7050; J7120; Q9967

== ENCOUNTER 2018-12-28 14:11 | Inpatient (IN) | payer OTHER ==
[~2018-12-28] VITALS: Ht 175.3 cm; Wt 68.0 kg
[2018-12-28] MEDS ORDERED: ACET325 PO (15:11)
[2018-12-28] MEDS ORDERED: LO-DOSE ASPIRIN81 MG PO (15:12)
[2018-12-28] MEDS ORDERED: TUMS500 MG PO (15:13)
[2018-12-28] MEDS ORDERED: Colace100 MG PO (15:15)
[2018-12-28] MEDS ORDERED: ENOX40I SC (15:16)
[2018-12-28] MEDS ORDERED: LEVE500 PO (15:17)
[2018-12-28] MEDS ORDERED: GENTAMICIN IV (15:17)
[2018-12-28] MEDS ORDERED: MAGOXI400 PO (15:19)
[2018-12-28] MEDS ORDERED: Nafcillin2 GM/100 M IV (15:21)
[2018-12-28] MEDS ORDERED: NICO21TP TOP (15:21)
[2018-12-28] MEDS ORDERED: ROXICODONE5 MG PO (15:23)
[2018-12-28] MEDS ORDERED: PANT40 PO (15:23)
[2018-12-28] MEDS ORDERED: POTA10T PO (15:25)
[2018-12-28] MEDS ORDERED: RIFA600I PO (15:26)
[2018-12-28 15:54] LABS: Hematocrit 31.8 % (37.0-53.0); Hemoglobin 10.1 g/dL (13.5-17.5); Mean Corpuscular HGB 28.5 pg (26.0-34.0); Mean Corpuscular HGB Conc 31.8 g/dL (31.5-36.5); Mean Corpuscular Volume 90 fL (80-100); Mean Platelet Volume 9.3 fL (9.1-12.4); Platelet Count 541 K/mm3 (150-400); RDW Coefficient Variation 14.6 % (11.7-14.2); RDW Standard Deviation 48.7 fL (35.1-46.3); Red Blood Cell Count 3.54 M/mm3 (4.30-5.90); White Blood Cell Count 22.77 K/mm3 (4.00-11.30)
[2018-12-28 16:04] LABS: Albumin, Blood 2.2 g/dL (3.4-5.0); Anion Gap 6 mmol/L (6-16); Blood Urea Nitrogen 7 mg/dL (8-24); Bun/Creatinine Ratio 7.2 (12.0-20.0); CO2, Blood 29 mmol/L (21-32); Calcium, Blood 8.3 mg/dL (8.5-10.1); Chloride, Blood 99 mmol/L (98-108); Creatinine, Blood 0.97 mg/dL (0.60-1.20); Glomerular Filtration Rate >60 (60-); Glucose, Blood 109 mg/dL (70-99); Phosphorus, Blood 3.6 mg/dL (2.5-4.9); Potassium, Blood 3.1 mmol/L (3.5-5.5); Sodium, Blood 134 mmol/L (136-145)
--- NOTE | 2018-12-28 18:50 | NUR ---
SHIFT SUMMARY NO ACUTE CHANGES NOTED THIS SHIFT. PT'S VS HAVE BEEN STABLE EXCEPT PT'S TEM, TMAX WAS 103.5, PT WAS GIVEN TYLENOL PER EMAR CURRENT TEMP IS 100.5. PT IS SBA TO THE BATHROOM. CALL LIGHT IN REACH, BED IS LOCKED WITH BED ALARM ON WILL CONTINUE TO MONITOR UNTIL REPORT IS GIVEN TO ONCOMING RN.
--- NOTE | 2018-12-29 02:34 | NUR ---
PT FOUND STANDING AT BEDSIDE URINATING ON FLOOR. PT ASSISTED TO BATHROOM IN WHICH PT WAS THEN FOUND TO HAVE PULLED OUT RFA PIV AFTER BATHROOM USE. PT ASSISTED BACK TO BED, BLOOD CLEANED FROM R ARM AND GOWN CHANGED. GAUZE AND COBAN APPLIED TO PULLED RFA IV SITE. BED ALARM ON.
[2018-12-29 04:34] LABS: BASOPHILS PERCENT AUTO 1 % (0-2); EOSINOPHILS ABSOLUTE AUTO 0.22 K/mm3 (0.00-0.68); EOSINOPHILS PERCENT AUTO 1 % (0-6); Hematocrit 27.4 % (37.0-53.0); Hemoglobin 8.8 g/dL (13.5-17.5); IMMATURE GRAN ABSOLUTE AUTO 0.18 K/mm3 (0.00-0.10); IMMATURE GRAN PERCENT AUTO 1 % (0-1); LYMPHOCYTES ABSOLUTE AUTO 2.81 K/mm3 (0.84-5.20); LYMPHOCYTES PERCENT AUTO 13 % (21-46); MONOCYTES ABSOLUTE AUTO 1.53 K/mm3 (0.16-1.47); MONOCYTES PERCENT AUTO 7 % (4-13); Mean Corpuscular HGB 27.9 pg (26.0-34.0); Mean Corpuscular HGB Conc 32.1 g/dL (31.5-36.5); Mean Platelet Volume 9.1 fL (9.1-12.4); NEUTROPHILS ABSOLUTE AUTO 17.24 K/mm3 (1.96-9.15); NEUTROPHILS PERCENT AUTO 78 % (41-73); Platelet Count 527 K/mm3 (150-400); RDW Coefficient Variation 14.7 % (11.7-14.2); RDW Standard Deviation 47.4 fL (35.1-46.3); Red Blood Cell Count 3.15 M/mm3 (4.30-5.90); White Blood Cell Count 22.08 K/mm3 (4.00-11.30)
[2018-12-29 04:35] LABS: Mean Corpuscular Volume 87 fL (80-100)
[2018-12-29 04:53] LABS: Alanine Aminotransfer (ALT/SGP 6 U/L (12-78); Albumin/Globulin Ratio 0.4 (0.8-1.8); Alk Phos 65 U/L (50-136); Anion Gap 7 mmol/L (6-16); Aspartate Aminotrans (AST/SGOT 12 U/L (12-37); Blood Urea Nitrogen 6 mg/dL (8-24); Bun/Creatinine Ratio 7.1 (12.0-20.0); CO2, Blood 25 mmol/L (21-32); Calcium, Blood 7.9 mg/dL (8.5-10.1); Chloride, Blood 103 mmol/L (98-108); Creatinine, Blood 0.84 mg/dL (0.60-1.20); Globulin, Blood 4.5 g/dL (2.2-4.0); Glomerular Filtration Rate >60 (60-); Glucose, Blood 122 mg/dL (70-99); Magnesium, Blood 2.2 mg/dL (1.6-2.4); Potassium, Blood 3.8 mmol/L (3.5-5.5); Sodium, Blood 135 mmol/L (136-145); Total Protein, Blood 6.5 g/dL (6.4-8.2)
--- NOTE | 2018-12-29 04:59 | NUR ---
SHIFT SUMMARY PT A&O X4 W/ SOME CONFUSION. VSS. LUNG SOUNDS CLEAR, SPO2 > 92% ON RA. MONITOR SHOWS ST, HR 100-120 W/ SPIKE UP TO 150'S DURING EPISODE OF GETTING UP, URINATING ON THE FLOOR AND SELF REMOVING PIV. BED ALARM ON. SBA INTO BATHROOM. OTHERWISE NO EVENTS OVER NIGHT. WILL CONTINUE TO MONITOR AND PROVIDE CARE UNTIL REPORT OFF TO DAY SHIFT RN.
--- NOTE | 2018-12-29 10:02 | NUR ---
AM NOTE. ASSUMED CARE OF PT APROX 0700, PT IS A&Ox4 AND SBA IN THE ROOM DUE TO LEFT SIDED WEAKNESS. PT IS CURRENTLY ADMITTED FOR ENDOCARDITIS AND IS GETTING IV ANTIBIOTICS Q4 HRS. PT STATES THAT THE POWERGLIDE/MID LINE CATH IS PAINFUL TO FLUSHES. TELE INTACT, ST IN THE 100'S-120'S, PT'S BP 110/69. NO EDEMA NOTED ON ASSESSMENT. L/S CLEAR T/O, BT PRESENT AND NORMOACTIVE, ABD IS SOFT AND NONTENDER TO PALP. CALL LIGHT IN REACH, BED IS LOCKED AND LOW WILL CONTINUE TO MONITOR.
[2018-12-30 04:51] LABS: BASOPHILS ABSOLUTE AUTO 0.13 K/mm3 (0.00-0.23); BASOPHILS PERCENT AUTO 1 % (0-2); EOSINOPHILS ABSOLUTE AUTO 0.16 K/mm3 (0.00-0.68); EOSINOPHILS PERCENT AUTO 1 % (0-6); Hematocrit 28.4 % (37.0-53.0); Hemoglobin 9.1 g/dL (13.5-17.5); IMMATURE GRAN ABSOLUTE AUTO 0.14 K/mm3 (0.00-0.10); IMMATURE GRAN PERCENT AUTO 1 % (0-1); LYMPHOCYTES ABSOLUTE AUTO 3.12 K/mm3 (0.84-5.20); LYMPHOCYTES PERCENT AUTO 15 % (21-46); MONOCYTES ABSOLUTE AUTO 1.69 K/mm3 (0.16-1.47); MONOCYTES PERCENT AUTO 8 % (4-13); Mean Corpuscular HGB 28.9 pg (26.0-34.0); Mean Corpuscular Volume 90 fL (80-100); NEUTROPHILS ABSOLUTE AUTO 15.03 K/mm3 (1.96-9.15); NEUTROPHILS PERCENT AUTO 74 % (41-73); Platelet Count 545 K/mm3 (150-400); RDW Coefficient Variation 14.9 % (11.7-14.2); RDW Standard Deviation 48.6 fL (35.1-46.3); Red Blood Cell Count 3.15 M/mm3 (4.30-5.90); White Blood Cell Count 20.27 K/mm3 (4.00-11.30)
--- NOTE | 2018-12-30 06:34 | NUR ---
a+o, fever controlled with tylenol, no cognative drop noted, picc line assessed by cn, infusing with no s/sx of infection or infiltration, room air, will continue to monitor and treat until walking rounds completed with day staff
--- NOTE | 2018-12-30 17:33 | NUR ---
SHIFT SUMMARY 38 YR OLD MALE ADMITTED FOR ENDOCARDITIS. (HX:IV METH USE, SEPTIC EMBOLISM TO BRAIN - LEFT SIDED WEAKNESS) INDEPENDENT IN ROOM, ROOM AIR, CONTINENT. REGULAR DIET. PREVIOUSLY ADMITTED TO [facility], THEY REFUSED TO PERFORM SURGERY THEY DID NOT BELIEVE THIS PT WAS RESOLVED TO QUIT USING DRUGS. IT HAS BEEN SUGGESTED THAT IF THIS PT ENTERED REHAB, HE MAY THEN RECEIVE SURGERY. PT RECEIVING IV ANTIBIOTICS FOR NOW. RUNS TACHYCARDIC. WATCH FOR LOW GRADE FEVERS. ON TELEMETRY AND MONITORED BY PCU EXTERNAL AUDITOR. HX:HYPOTENSION
--- NOTE | 2018-12-31 00:40 | NUR ---
12/30/18 2528 Pt has PICC line in left upper arm. Area is red, swollen and warm to the touch. Pt states it is very painful to have anything through it. Abhishek Bianchi hospitalist notified. Arias does not want line pulled. Requests that day Hospitalist to evaluate and determine if it needs an ultrasound or pulled. Pt is on q4 hour ABX. Periferral IV was started to use until line can be evaluated. Nurse Juarez notified of conversation with hospitalist.
[2018-12-31 03:38] LABS: U Amphetamine Screen Not Detected; U Barbituate Screen Not Detected; U Benzodiazapine Screen Not Detected; U Buprenorphine Screen Not Detected; U Cannabinoids Screen Not Detected; U Cocaine Screen Not Detected; U Methadone Screen Not Detected; U Methamphetamine Screen Not Detected; U Opiates Screen Not Detected; U Oxycodone Screen Not Detected; U Phencyclidine Screen Not Detected; U Propoxyphene Screen Not Detected
[2018-12-31 04:37] LABS: BASOPHILS ABSOLUTE AUTO 0.12 K/mm3 (0.00-0.23); BASOPHILS PERCENT AUTO 1 % (0-2); EOSINOPHILS ABSOLUTE AUTO 0.18 K/mm3 (0.00-0.68); EOSINOPHILS PERCENT AUTO 1 % (0-6); Hematocrit 25.4 % (37.0-53.0); Hemoglobin 8.2 g/dL (13.5-17.5); IMMATURE GRAN PERCENT AUTO 1 % (0-1); LYMPHOCYTES ABSOLUTE AUTO 3.78 K/mm3 (0.84-5.20); LYMPHOCYTES PERCENT AUTO 15 % (21-46); MONOCYTES ABSOLUTE AUTO 2.13 K/mm3 (0.16-1.47); MONOCYTES PERCENT AUTO 9 % (4-13); Mean Corpuscular HGB 28.5 pg (26.0-34.0); Mean Corpuscular HGB Conc 32.3 g/dL (31.5-36.5); Mean Corpuscular Volume 88 fL (80-100); Mean Platelet Volume 8.6 fL (9.1-12.4); NEUTROPHILS ABSOLUTE AUTO 18.28 K/mm3 (1.96-9.15); NEUTROPHILS PERCENT AUTO 74 % (41-73); Platelet Count 544 K/mm3 (150-400); RDW Coefficient Variation 14.8 % (11.7-14.2); RDW Standard Deviation 47.5 fL (35.1-46.3); Red Blood Cell Count 2.88 M/mm3 (4.30-5.90); White Blood Cell Count 24.69 K/mm3 (4.00-11.30)
--- NOTE | 2018-12-31 07:14 | NUR ---
a+o, picc line inflamed and not accessed passed on to day shift to have assessed by qualified staff, new IV started in L arm, infusing with no s/sx of infection or infiltration, call light in reach, room air, sbar report provided to returning day staff
--- NOTE | 2018-12-31 17:03 | NUR ---
CALLED HOSPITALIST INFORMED HIM THAT PT'S PICC INSERTION SITE WAS SORE AND TENDER, BEGINNING YESTERDAY. SOME REDNESS AND SWELLING POSSIBLY. ([place]Y TATTOOS). HOSPITALIST ROUNDED ON PT, EXAMINED HIM, AND SAID THAT WE SHOULD CONTINUE TO MONITOR. HE DID NOT FEEL AT THIS TIME THAT THERE WERE INDICATIONS FOR THE EXISTENCE OF A CLOT.
--- NOTE | 2018-12-31 17:07 | NUR ---
ADDENDUM RE: PICC I WILL CONTINUE TO USE PERIPHERAL IV UNTIL TENDERNESS RESOLVES, RATHER THAN PICC.
--- NOTE | 2018-12-31 17:23 | NUR ---
SHIFT SUMMARY 38 YR OLD MALE ADMITTED FOR ENDOCARDITIS (HX:IV DRUG USE). A&O X4, INDEP IN ROOM, ROOM AIR. REGULAR DIET, TELEMETRY MONITORING BY PCU BRIEFCASE SEWER -TRENDS TACHY. PERIPHERAL IV IN RT. HAND, PICC LINE IN LEFT UPPER ARM. PICC INSERTION SITE HAS BEEN SORE AND POSSIBLY RED FOR TWO DAYS, IT IS DIFFICULT TO ASSESS DUE TO EXTENSIVE TATTOOS. HOSPITALIST ASSESSED INSERTION SITE AND ASKS US TO CONTINUE TO MONITOR IT (SEE NOTE). PLAN IS FOR PT TO RECEIVE AGGRESSIVE IV ANTIBIOTIC THERAPY
--- NOTE | 2019-01-01 06:21 | NUR ---
NOC SHIFT SUMMARY PT HAS BEEN PLEASANT AND COOPERATIVE WITH CARE THIS NIGHT. HIS IV WAS IRRITATING HIM AND SO IT WAS REPLACED WITH IV IN R HAND. HAS COMPLAINED OF PAIN WITH THE ABX INFUSION. SLOWED INFUSION. IV RAMAINS PATENT. VSS THOUGH HIS HR IS TACHY. IT HAS BEEN THIS WAY FOR DAYS AROUND 115. PT CURRENTLY WATCHING TV AND APPEARS IN NO ACUTE DISTRESS. WILL CONTINUE TO MONITOR.
--- NOTE | 2019-01-01 13:42 | NUR ---
PER DR WHITING HE ASSESSED PT PICC LINES LAST EVENING AND AGAIN THIS AM AND DOES NOT SEE ANY CONCERNS, PER DR WHITING OK TO USE PICC LINE.
--- NOTE | 2019-01-01 18:08 | NUR ---
SHIFT SUMMARY- PT A/O, COOPERATIVE WITH CARE BUT FLAT AND WITHDRAWN. PT INDEP IN ROOM. LEFT ARM WEAKNESS FROM HX SEPTIC EMBOLI. PICC LINES TO JONO, PT REPORTS PAIN AT INSERTION SITE, PER DR CAVAZOS OK TO USE PICC LINE BUT PT REFUSES FOR PICC TO BE USED. NEW IV PLACED TO RIGHT WRIST. LS CLEAR. TELE ST AT 112, TELE DC'D. MURMUR NOTED. NO OTHER ACUTE CHANGES THIS SHIFT.
--- NOTE | 2019-01-02 07:12 | NUR ---
SHIFT SUMMARY PT IS A 38 Y/O MALE, ADMITTED WITH ENDOCARDITIS. HE IS A&O X 4, AND INDEPENDENT IN THE ROOM. THE PT IS STILL REFUSING TO ALLOW STAFF TO USE OR FLUSH HIS CURRENT PICC LINE. PT'S PERIPHERAL IV BLEW DURING HIS FIRST IV ABX ADMINISTRATION, AND ONLY RECEIVED PART OF HIS FIRST ABX DOSE DURING THE NIGHT, THOUGH HE RECEIVED THE FULL AMOUNT OF THE NEXT TWO DOSES. HE DENIED ANY COMPLAINTS OF ACUTE PAIN, NAUSEA OR SOB DURING THE NIGHT. PT HAD A FEVER DURING EVENING VITALS AT 101.4, THAT CAME DOWN TO 99.8 AFTER RECEIVING TYLENOL. PT'S BP WAS LOW AT HIS BASELINE IN THE 90S SYSTOLICALLY. ALL OTHER VITALS STABLE. NO OTHER ACUTE CHANGES IN PT CONDITION NOTED. REPORT GIVEN TO ONCANNEMARIE GARRETT.
--- NOTE | 2019-01-02 12:07 | NUR ---
SPOKE WITH DR WHITING AT BEDSIDE REGARDING PICC LINES. PT CONTINUES TO NOT LET US USE PICC INCLUDING EVEN FLUSHING. PER PT IT HURTS TO BAD. PER DR WHITING DC PICC LINE. SUGGESTED A POWERGLIDE FOR PT HOWEVER DR WHITING STATES HE WANTS A NEW PICC LINE PLACED. PICC NURSE NOTIFIED.
--- NOTE | 2019-01-02 16:41 | NUR ---
SHIFT SUMMARY- PT A/OX4, INDEP UP IN ROOM. PT WITH LEFT ARM WEAKNESS. PT DENIES ANY COMPLAINTS. PICC TO JONO DC'D AND NEW PICC PLACED TO DONTE. PT TACHY T/O THE SHIFT. NO OTHER ACUTE CHANGES THIS SHIFT.
--- NOTE | 2019-01-02 17:32 | NUR ---
Pal Spiritual care initial visit: Ihsan was alone in room. He is pleasant and soft-spoken. He had very little to say and did not engage in conversation--answering with one word only. He appears comfortable and denied pain or concern. It is unclear to me if he understands his dx. He is non-jain and was politely dismissive. I will remain available.
--- NOTE | 2019-01-03 06:42 | NUR ---
SHIFT SUMMARY PT IS A 38 Y/O MALE, ADMITTED FOR ENDOCARDITIS. HE IS A&O X 4, AND INDEPENDENT IN THE ROOM. HE DENIED ANY COMPLAINTS OF PAIN, NAUSEA OR SOB, AND SLEPT WELL. PT'S HEART RATE WAS ELEVATED IN THE 110-120S, AND HIS BP REMAINED LOW IN THE 90S SYSTOLICALLY, THOUGH VITALS REMAINED AT HIS BASELINE. NO OTHER ACUTE CHANGES IN PT CONDITION NOTED. WILL CONTINUE TO MONITOR AND TREAT PER EMAR.
--- NOTE | 2019-01-03 08:38 | NUR ---
NURSE ENTERED ROOM TO GIVE MORNING MEDICATIONS. PT CALM AT BEDSIDE. PT BEGAN BECOMING ANXIOUS. HR ELEVATED AT 130. BP 95/52. PT STATES "I FEEL LIKE i AM GONNA ." PT SHIFTING POSITIONS FREQUENTLY NURSE ATTEMPTING TO CALM PATIENT. NURSE NOTIFIED DR ZULETA WHO ORDERED A URINE TOX SCREEN. PT DENIES GOING OUTSIDE SO FAR TODAY. PT NOW LAYING IN BED, TRYING TO CALM. PULSE REMAINS 129.
--- NOTE | 2019-01-03 09:20 | NUR ---
ARRIVED TO ICU POST RAPID RESPONSE FROM ROOM 306. PT FOUND IN BATHROOM BY MEDICAL FLOOR STAFF. PT PURPLE AND MOSTLY UNRESPONSIVE, ABLE TO OBTAIN MANUAL BP OF 90'S SYSTOLIC ON MEDICAL FLOOR. UPON ARRIVAL TO ICU DR VALADEZ AT BEDSIDE, PREPPED FOR INTUBATION.
--- NOTE | 2019-01-03 09:25 | NUR ---
RSI PT ARRIVAL TO UNIT AT 0920, MOTTLED AND BLUE IN COLOR ON 15L NON REBREATHER. RESTLESS IN BED, UNABLE TO ANSWER QUESTIONS. DR. VALADEZ AT BEDSIDE WITH GLIDESCOPE PREPARING FOR INTUBATION. 4MG IV VERSED ADMIN PER DR. VALADEZ AND 80MG PROPOFOL ADMIN. 0930 ETT 7.5 PLACED, POSITIVE COLOR CHANGE AND POSITVE BILAT BREATHE SOUNDS. PER DR. VALADEZ ANOTHER 20MG IV PROPOFOL GIVEN. LEVOPHED GTT INTIATED AT 10MCG/MIN TO BE TITRATED NEEDED AND FLUID BOLUS STARTED.
--- NOTE | 2019-01-03 09:43 | NUR ---
PT INTUBATED AT 0930, NS BOLUS INFUSING. LEVOPHED ORDERED. ADDITIONAL IV ACCESS OBTAINED. PICC LINE IS ONLY SINGLE LUMEN. DR ZULETA AND DR VALADEZ AT BEDSIDE. ORDERS FOR STAT ECHO WITH CONCERN FOR MIGRATED SEPTIC EMBOLI.
[2019-01-03 10:00] LABS: Hematocrit 29.4 % (37.0-53.0); Hemoglobin 8.8 g/dL (13.5-17.5); Mean Corpuscular HGB 28.9 pg (26.0-34.0); Mean Corpuscular HGB Conc 29.9 g/dL (31.5-36.5); Mean Platelet Volume 8.8 fL (9.1-12.4); Platelet Count 554 K/mm3 (150-400); RDW Coefficient Variation 15.2 % (11.7-14.2); RDW Standard Deviation 52.6 fL (35.1-46.3); Red Blood Cell Count 3.05 M/mm3 (4.30-5.90); White Blood Cell Count 21.25 K/mm3 (4.00-11.30)
[2019-01-03 10:02] LABS: Mean Corpuscular Volume 96 fL (80-100)
[2019-01-03 10:13] LABS: Source, Urine Clean Catch
[2019-01-03 10:15] LABS: Alanine Aminotransfer (ALT/SGP 10 U/L (12-78); Albumin, Blood 1.9 g/dL (3.4-5.0); Albumin/Globulin Ratio 0.4 (0.8-1.8); Alk Phos 60 U/L (50-136); Anion Gap 18 mmol/L (6-16); Aspartate Aminotrans (AST/SGOT 22 U/L (12-37); Bilirubin, Total 0.9 mg/dL (0.1-1.0); Blood Urea Nitrogen 7 mg/dL (8-24); Bun/Creatinine Ratio 5.1 (12.0-20.0); CO2, Blood 16 mmol/L (21-32); CPK Creatine Kinase 67 U/L (39-308); Calcium, Blood 8.5 mg/dL (8.5-10.1); Chloride, Blood 103 mmol/L (98-108); Creatinine, Blood 1.36 mg/dL (0.60-1.20); Globulin, Blood 4.9 g/dL (2.2-4.0); Glomerular Filtration Rate >60 (60-); Glucose, Blood 152 mg/dL (70-99); Sodium, Blood 137 mmol/L (136-145); Total Protein, Blood 6.8 g/dL (6.4-8.2)
--- NOTE | 2019-01-03 10:15 | NUR ---
ETT AND OG TUBE CONFIRMED VIA XRAY JACOBO TEMP PROBE PLACED. URINE SPECIMEN SENT. 1LNS BOLUS CONTINUES. PT. LEVOPHED TITRATED UP TO 30MCG/KG/MIN PER DR. VALADEZ AND EPI GTT STARTED. PT REMAINS HYPOTENSIVE. PT. NECK PURPLE COLORED AND MOTTLED T/O BODY. PT. FINGERS AND TOES WHITE PULSES FAINT. HR 115, ONLY ABLE TO GET MEAN BP OF 44. SANIA RN AT BEDSIDE TO ATTEMPT PICC LINE TO LEFT UPPER ARM DUE TO ONLY SINGLE LUMEN PICC IN RIGHT UPPER ARM.
[2019-01-03 10:18] LABS: Troponin I 0.624 ng/mL (0.000-0.040)
--- NOTE | 2019-01-03 10:21 | NUR ---
EPI GTT TITRATED UP TO 20MCG/MIN. LEVOPHED GTT REMAINS AT 30MCG/KG/MIN. DR. VALADEZ AT BEDSIDE. PT. HAS FAINT PULSES NOTED VIA DOPPLER TO GROIN.
--- NOTE | 2019-01-03 10:25 | NUR ---
Received call from archie Bailey and she reports Pt has been transfered to ICU and has a poor prognosis. She request for palliative care to contact family. Spoke with Dr Corley and he also reports poor prognosis. Pt currently being cared for by ICU nurses. Found contact information on a note pad in Pt's belongings bag. Called first family member on list labeled Aunt Renetta and left a message. Received return phone call and informed her of Pt's condition and prognosis. She reports that she will head to hospital. Called and spoke with Pt's daughter Sallie who reports that she is Pt's decision maker. Educated Sallie on Pt's condition and prognosis and discussed code status. Sallie reports that she will head to the hospital and think about code status on her way in. Pt's mamadou Rizo (decision maker) [phone] Pt's Aunt Renetta [phone] Palliative Care will remain available.
--- NOTE | 2019-01-03 10:31 | NUR ---
MIDLINE IV IN PLACE TO LEFT UPPER ARM FAMILY CONTACTED BY PALLIATIVE CARE, PT DAUGHTER EN ROUTE. PT ON 20MCG/MIN AND 30MCG/MIN. PT REMAINS OFF SEDATION AND IS UNRESPONSIVE. UNABLE TO OBTAIN BP. DR. VALADEZ AWARE. DEFIB PADS PLACED AT THIS TIME. MAINTENANCE JOURNEYMAN AT BEDSIDE.
--- NOTE | 2019-01-03 10:37 | NUR ---
2ND LITER BOLUS STARTED ALONG WITH FIRST DOSE OF ALBUMIN. PT HR SLOWING FROM 120S TO LOW 100S. STILL UNABLE TO OBTAIN BP
--- NOTE | 2019-01-03 10:45 | NUR ---
RORY ELIZONDO AT BEDSIDE TO OBSERVE ECHO. PER DR. VALADEZ AT THIS TIME NO CPR DUE TO RESULTS OF ECHO AND CONDITION OF PT HEART VALVE EFFORTS ARE FUTILE. AWAITING PT DAUGHTER. PLACED ON DEFIB MONITOR.
[2019-01-03 10:48] LABS: BASOPHILS PERCENT MAN 0 % (0-2); EOSINOPHILS PERCENT MAN 0 % (0-6); LYMPHOCYTES ABSOLUTE MAN 7.43 K/mm3 (0.84-5.20); LYMPHOCYTES PERCENT MAN 35 % (21-46); MONOCYTES ABSOLUTE MAN 0.85 K/mm3 (0.16-1.47); MONOCYTES PERCENT MAN 4 % (4-13); NEUTROPHILS ABSOLUTE MAN 12.96 K/mm3 (1.96-9.15); SEG NEUTROPHILS PERCENT MAN 61 % (41-73); TOTAL CELLS COUNTED 100
--- NOTE | 2019-01-03 10:58 | NUR ---
PT HR BEGAN TO SLOW TO THE 40S. WITH ALL PRESSORS MAXED. 1AMP OF EPI GIVEN PER DR. VALADEZ AT 1056 ASYSTOLE NOTED ON MONITOR AT 1057, DR. VALADEZ AT BEDSIDE TO PRONOUNCE PT. TIME OF AT [address] VALADEZ. AWAITING FAMILY AT THIS TIME.
[2019-01-03 11:03] LABS: Bilirubin, Urine Neg (Neg); Blood, Urine 4+ (Neg); Glucose Qualitative, Urine Neg (Neg); Ketones, Urine Neg (Neg); Leukocyte Esterase, Urine Neg (Neg); Nitrite, Urine Neg (Neg); Protein, Urine 3+ (Neg); Urobilinogen, Urine NORM (Normal); pH, Urine 6.5 (5.0-8.0)
[2019-01-03 11:06] LABS: Appearance, Urine Hazy (Clear); Color, Urine Yellow (P-Yellow)
[2019-01-03 11:11] LABS: Bacteria Mod /hpf; Squamous Epithelial Cells Few /hpf (Few)
[2019-01-03 11:12] LABS: Amorphous Light (0-Heavy)
[2019-01-03 11:24] LABS: U Amphetamine Screen Not Detected; U Barbituate Screen Not Detected; U Benzodiazapine Screen Not Detected; U Buprenorphine Screen Not Detected; U Cannabinoids Screen Not Detected; U Cocaine Screen Not Detected; U Methadone Screen Not Detected; U Methamphetamine Screen Not Detected; U Opiates Screen DETECTED; U Oxycodone Screen Not Detected; U Phencyclidine Screen Not Detected; U Propoxyphene Screen Not Detected
--- NOTE | 2019-01-03 12:01 | NUR ---
eCHOCARDIOGRAM COMPLETED AT 10:00A.M.
--- NOTE | 2019-01-03 12:30 | NUR ---
AT APPROXIMATELY 0855, SAS ANALYST ENTERED ROOM TO OFFER PT BED BATH. SAS ANALYST FOUND PT ON TOILET. HE HAD AN EPISODE OF INCONTINENCE OF BOWEL ONTO FLOOR AND HIS SKIN COLOR WAS VERY PALE. PT WAS NOT ANSWERING QUESTIONS BUT WAS ABLE TO REMAIN SITTING UPRIGHT ON TOILET. SAS ANALYST CALLED NURSE IMMEDIATELY. NURSE ARRIVE TO ROOM AT THE SAME TIME CHARGE NURSE ENTERED. RAPID RESPONSE CALLED AT 0857. NURSE, CHARGE NURSE, SAS ANALYST AMONG OTHERS TRANSFERRED PT FROM TOILET TO BED, MEASURED VITAL SIGNS. CRASH CART IN ROOM AT 0900. DR ZULETA IN ROOM TO ASSESS PATIENT. FLUID BOULS INITIATED AT 0901. PT TRANSFERRED TO ICU AT 0910. REPORT GIVEN IMMEDIATELY TO DR. VALADEZ AND STEFFI BILL WHO ASSUMED CARE AT THAT TIME. NURSING GRAPPLE CREW LEADER TO CALL FAMILY MEMBERS.
--- NOTE | 2019-01-03 13:02 | NUR ---
I met with patient's Daughter, Kashmir, and her in the hallway outside of patient's room. I provided grief support, normalized her experience and provided prayer. I allowed Kashmir to share what she is feeling and facilitated a life review. I pointed out the gift of having a sober father for the last month of his life. Kashmir talked about what has been good and meaningful during this time. They both seemed to by grieving apprpriately and they shared about how they have a great support group through their friends and their roman catholic. I will continue to be availble for grief support.
== END 2019-01-03 10:57 ==
LOC: PCU 14:11 → MEDS 14:11 → ICUE 01-03 09:21
PROVIDERS: Internal Medicine; ADMIT Internal Medicine
PROC: 02HV33Z Insertion of Infusion Device into Superior Vena Cava, Percutaneous Approach (ICD-10-PCS; 2018-12-28)
PROC: 0BH17EZ Insertion of Endotracheal Airway into Trachea, Via Natural or Artificial Opening (ICD-10-PCS; principal; 2019-01-03)
PROC: 5A1935Z Respiratory Ventilation, Less than 24 Consecutive Hours (ICD-10-PCS; 2019-01-03)
PROC: 3E033XZ Introduction of Vasopressor into Peripheral Vein, Percutaneous Approach (ICD-10-PCS; 2019-01-03)
DX: T82.6XXA Infection and inflammatory reaction due to cardiac valve prosthesis, initial encounter (principal); A41.01 Sepsis due to Methicillin susceptible Staphylococcus aureus; I21.9 Acute myocardial infarction, unspecified; R65.21 Severe sepsis with septic shock; J96.01 Acute respiratory failure with hypoxia; I63.89 Other cerebral infarction; I76 Septic arterial embolism; I74.8 Embolism and thrombosis of other arteries; I50.20 Unspecified systolic (congestive) heart failure; F17.210 Nicotine dependence, cigarettes, uncomplicated; I95.9 Hypotension, unspecified; F19.10 Other psychoactive substance abuse, uncomplicated; R57.0 Cardiogenic shock; I08.0 Rheumatic disorders of both mitral and aortic valves
CPT/HCPCS: 36415; 71045; 80053; 80069; 81001; 82550; 83605; 83735; 84484; 85025; 85027; 85651; 87040; 93308; 93321; 97112; 97161; 97165; A9270; J0171; J2250; J2704; J3480; J7030; J7040; J7060; P9046